=== PATIENT | female | born 1955 | race Caucasian/White ===

== ENCOUNTER 2024-12-21 18:24 | Inpatient (IN) ==
--- NOTE | 2024-12-21 18:49 | Emergency Department Note ---
Impression & Plan Fall from standing, Acute pain of left hip, Closed left hip fracture ED Provider Note HISTORY OF PRESENT ILLNESS: Patient is a 69-year-old female presenting with left hip pain after a fall. Patient reports that she tripped over a cord on her computer and fell to the ground, landing on her left hip. Immediate pain and deformity to the hip. She was unable to get up off the ground by herself and called 911. She denies striking her head or loss of consciousness. She is not on any anticoagulation or antiplatelet therapies. EMS placed a pelvic binder prehospital. On arrival to the emergency department, the patient is complaining of 10 out of 10 pain in her left hip. She is given 100 mcg of IV fentanyl prehospital with EMS. Patient does report she just tripped and fell, she denies any chest pain, shortness of breath or lightheadedness prior to her fall. ROS: as above PHYSICAL EXAM: Constitutional: Patient appears in no acute distress. HENT: Head: Normocephalic and atraumatic. Eyes: EOMI, PERRL Mouth/Throat: Mucous membranes moist. Neck: Trachea midline. Neck supple. No midline cervical spine tenderness to palpation. Cardiovascular: RRR, No murmurs, rubs or gallops. Intact distal pulses. Pulmonary/Chest: No respiratory distress. Breath sounds clear and equal bilaterally. No wheezes or rales. Abdominal: Abdomen soft, no tenderness, rebound or guarding. Musculoskeletal: - LLE: Left leg is shortened and externally rotated. Obvious deformity at the left proximal femur. No open wounds. Intact DP and PT pulses. Patient is able to wiggle toes. Able to dorsiflex and plantarflex the ankle. Sensation intact to light touch throughout the nerve distributions of the leg. Pain with internal and external rotation of the femur at the hip. Skin: Warm and dry. No rash, erythema, pallor or cyanosis Psychiatric: Appropriate mood and affect for situation. Neurological: Alert and keenly responsive. CN II-XII grossly intact, moving all extremities equally and fully. MDM: - Vitals signs showed tachycardia - History obtained via patient. History as above. - Chronic conditions affecting care: HTN; HLD - Differential diagnoses include, but are not limited to: Pelvic fracture; femur fracture; femur dislocation; ACS - Order placed for continuous cardiac monitoring. At this time, monitor showed rate of 96 bpm with normal sinus rhythm, per my interpretation. - External medical records reviewed. - EKG image interpreted by myself showed normal sinus rhythm. Rate 99 bpm. QT 354. No acute ischemic changes. - Laboratory workup interpreted by myself showed normal WBC; stable electrolytes; hyperglycemia (glucose 282) with elevated anion gap (16); elevated AST (65) with normal ALT and normal total bilirubin; normal troponin - Patient given 0.25 mg IV dilaudid in ER. Shortly after opioid dosing, the patient became hypoxic and was started on 2 L nasal cannula. - Pre operative EKG and CXR ordered - CXR image reviewed by myself is negative for pneumonia, per my interpretation. - Xray pelvis with left hip showed left femur fracture. It looks as though it is an intertrochanteric fracture. - Berry catheter inserted - Patient given 1g IV tylenol in ER. - Discussed case with orthopedic surgeon on-call, Dr. King, at 19:39. He agrees with n.p.o. at midnight and admission to hospitalist service. Will plan for OR tomorrow. - Discussion was had with manager rn case about patient's case and need for admission - Hospitalist, Dr. Samaniego, consulted for admission - Patient admitted to [facility] hospitalist service for further evaluation and management. ASSESSMENT AND PLAN: Diagnosis: fall from standing; acute left hip pain; closed left femur fracture Plan: admit Past Med/Surg History Problem List (Updated 12/21/24 @ 21:09 by Susanne Mckeon MD) Closed left hip fracture (Acute) Acute pain of left hip (Acute) Fall from standing (Acute) Social History Smoking Status: Unknown if ever smoked Preferred Language: Hong Konger Feels Safe at Home: Yes Allergies Allergies Allergy/AdvReac Type Severity Reaction Status Date / Time Sulfa (Sulfonamide Allergy Severe Hives Unverified 12/21/24 20:14 Antibiotics) Home Meds Home Medications Medication Instructions Recorded Confirmed atorvastatin 10 mg tablet 10 mg PO HS 12/21/24 12/21/24 cholecalciferol (vitamin D3) 25 25 mcg PO Q48H 12/21/24 12/21/24 mcg (1,000 unit) capsule (Vitamin D3) lisinopril 20 mg tablet 20 mg PO QPM 12/21/24 12/21/24 metformin 500 mg tablet,extended 500 mg PO BIDWMEAL 12/21/24 12/21/24 release 24 hr omeprazole 20 mg capsule,delayed 20 mg PO QAM 12/21/24 12/21/24 release raloxifene 60 mg tablet 60 mg PO QAM 12/21/24 12/21/24 Results & Data (ED) Vital Signs Vital Signs - 24 hr 12/21/24 18:34 12/21/24 18:36 12/21/24 18:55 Pulse Rate 100 H 95 H Pulse Rate [Apical] Respiratory Rate 20 Blood Pressure 134/90 Blood Pressure [Left Arm] Blood Pressure Mean 104 Blood Pressure Mean [Left Arm] Blood Pressure Position Sitting Pulse Oximetry 92 86 L Oxygen Delivery Method Room Air Room Air Oxygen Flow Rate Sepsis Recent Fever Within 48 Hours No Sepsis New/Unexplained Change in Mental Status No Sepsis Action Taken by Nursing No Action Required Oxygen Flow Rate - Titration 3 Pulse Oximetry Post Tiitration 95 12/21/24 21:07 Pulse Rate Pulse Rate [Apical] 115 H Respiratory Rate 20 Blood Pressure Blood Pressure [Left Arm] 158/89 H Blood Pressure Mean Blood Pressure Mean [Left Arm] 112 Blood Pressure Position Pulse Oximetry 97 Oxygen Delivery Method Nasal Cannula Oxygen Flow Rate 2 Sepsis Recent Fever Within 48 Hours Sepsis New/Unexplained Change in Mental Status Sepsis Action Taken by Nursing Oxygen Flow Rate - Titration Pulse Oximetry Post Tiitration Laboratory Data 12/21/24 18:30 12/21/24 18:30 Lab Results 12/21/24 Range/Units 18:30 WBC 9.91 (4.8-10.8) K/ul RBC 3.73 L (4.20-5.40) M/uL Hgb 12.6 (12.0-16.0) g/dl Hct 35.8 L (37.0-47.0) % MCV 96.0 (80.0-100.0) fL MCH 33.8 (25.0-34.0) pg MCHC 35.2 (32.0-36.0) g/dL RDW Std Deviation 53.1 H (36.4-46.3) fL RDW Coeff of Leatha 15.0 H (11.5-14.5) % Plt Count 232 (130-400) K/uL MPV 11.6 (9.4-12.4) fL Immature Gran % (Auto) 0.5 % Neut % (Auto) 71.4 % Lymph % (Auto) 21.0 % [place] % (Auto) 5.8 % Eos % (Auto) 0.8 % Baso % (Auto) 0.5 % Neut # (Auto) 7.08 H (1.40-6.50) K/uL Lymph # (Auto) 2.08 (1.20-3.40) K/uL [place] # (Auto) 0.57 (0.11-0.59) K/uL Eos # (Auto) 0.08 (0.00-0.50) K/uL Baso # (Auto) 0.05 (0.00-0.20) K/uL Immature Gran # (Auto) 0.05 (0.01-0.20) K/uL PT 11.9 (9.0-12.0) Seconds INR 1.1 (0.9-1.1) APTT 23 (21-31) Seconds PTT Ratio 0.9 Sodium 136 (136-145) mmol/L Potassium 3.9 (3.5-5.1) mmol/L Chloride 104 (98-107) mmol/L Carbon Dioxide 16 L (21-32) mmol/L Anion Gap 16 H (3-11) BUN 8 (6-23) mg/dl Creatinine 0.76 (0.6-1.2) mg/dl Est Cr Clr Drug Dosing 92.1 ml/min eGFR 84.24 BUN/Creatinine Ratio 10.5 (10-20) Glucose 282 H (70-99(Fasting)) mg/dl Calcium 8.9 (8.6-10.3) mg/dl Total Bilirubin 0.4 (0.2-1.0) mg/dl AST 65 H (13-39) U/L ALT 48 (7-52) U/L Alkaline Phosphatase 60 (34-104) U/L Troponin I High Sens 2.9 (0-14) pg/ml Total Protein 6.8 (6.0-8.3) gm/dl Albumin 4.1 (3.4-5.0) gm/dl Globulin 2.7 (2.5-4.0) gm/dl Albumin/Globulin Ratio 1.5 (0.9-2) Administered Medications Discontinued Medications Hydromorphone HCl (Hydromorphone Inj 0.5 Mg/0.5 Ml Syr) 0.25 mg IV NOW STA Stop: 12/21/24 18:34 Last Admin: 12/21/24 19:00 Dose: 0.25 mg Documented By: BRANDON Hydromorphone HCl (Hydromorphone Inj 0.5 Mg/0.5 Ml Syr) 0.25 mg IV NOW STA Stop: 12/21/24 20:28 Last Admin: 12/21/24 20:45 Dose: 0.25 mg Documented By: BRANDON Acetaminophen (Ofirmev) 1,000 mg in 100 mls @ 400 mls/hr IV NOW STA Stop: 12/21/24 19:48 Last Infusion: 12/21/24 20:44 Dose: Infused Documented By: Admin: 12/21/24 20:08 Dose: 400 mls/hr Documented By: BRANDON Discharge Plan Visit Data Chief Complaint: Fall ED Provider: Susanne Mckeon Discharge Problem: Fall from standing, Acute pain of left hip, Closed left hip fracture Condition: Fair Forms Stand Alone Forms: My [facility] Prescriptions Prescriptions: No Action atorvastatin 10 mg tablet 10 mg PO HS lisinopril 20 mg tablet 20 mg PO QPM omeprazole 20 mg Capsule,Delayed Release(Dr/Ec) 20 mg PO QAM raloxifene 60 mg tablet 60 mg PO QAM metformin 500 mg tablet extended release 24 hr 500 mg PO BIDWMEAL cholecalciferol (vitamin D3) [Vitamin D3] 25 mcg (1,000 unit) Capsule 25 mcg PO Q48H Referrals Referrals: PCP,NO [Physician] -
[2024-12-21 18:59] LABS: Hematocrit (blood only) 35.8 % (37.0-47.0); Hemoglobin 12.6 g/dl (12.0-16.0); Immature Granulocytes # (auto) 0.05 K/uL (0.01-0.20); Immature Granulocytes % (auto) 0.5 %; Mean Corpuscular Hemoglobin 33.8 pg (25.0-34.0); Mean Corpuscular Volume 96.0 fL (80.0-100.0); Platelet Count 232 K/uL (130-400); RDW Standard Deviation 53.1 fL (36.4-46.3); Red Blood Count 3.73 M/uL (4.20-5.40); White Blood Count 9.91 K/ul (4.8-10.8)
[2024-12-21] MEDS: HYDROmorphone INJ 0.5 MG/0.5 ML SYR IV STA ×3 (19:00→22:05)
[2024-12-21 19:17] LABS: Alanine Aminotransferase 48.0 U/L (7-52); Albumin Globulin Ratio 1.5 (0.9-2); Alkaline Phosphatase 60.0 U/L (34-104); Anion Gap 16.0 (3-11); Bilirubin,Total 0.4 mg/dl (0.2-1.0); Blood Urea Nitrogen 8.0 mg/dl (6-23); Calcium 8.9 mg/dl (8.6-10.3); Carbon Dioxide 16.0 mmol/L (21-32); Chloride 104.0 mmol/L (98-107); Creatinine Clr Calc Pharmacy 92.1 ml/min; Globulin 2.7 gm/dl (2.5-4.0); Glucose 282.0 mg/dl (70-99(Fasting)); Potassium 3.9 mmol/L (3.5-5.1); Sodium 136.0 mmol/L (136-145); Total Protein 6.8 gm/dl (6.0-8.3)
[2024-12-21 19:45] LABS: INR 1.1 (0.9-1.1); Partial Thromboplastin Time 23 Seconds (21-31); Prothrombin Time 11.9 Seconds (9.0-12.0)
[2024-12-21] MEDS: ACETAMINOPHEN 1,000 MG/100 ML VIAL IV STA (20:08)
--- NOTE | 2024-12-21 20:39 | History & Physical Report ---
Date of Service December 21, 2024 Assessment & Plan (1) Closed left hip fracture: Plan: 69-year-old female with past medical history significant for hypertension, diabetes, GERD, hyperlipidemia comes because of fall and found to have left hip fracture. Patient states she tripped over a computer cord and fell on the left side. Did not hit her head. No loss of consciousness. Denies any chest pain. No dizziness. No shortness of breath. Having a lot of pain in the left hip region. Having lot of spasms. Denies any fevers. No headache. No runny nose or sore throat. No cough. Eating and drinking okay. No nausea. No abdominal pain. Normal bowel and bladder movements. Prior to falling she was ambulating fine without any support. Closed left hip fracture Status post mechanical fall Labs are okay. EKG okay. Chest x-ray okay. Patient should be at acceptable risk to proceed with surgery N.p.o., IV fluids, IV pain meds as needed Ortho consult Hypertension On lisinopril Will monitor Diabetes Hold metformin Will follow HbA1c levels Sliding scale We will monitor Hyperlipidemia On statin GERD On omeprazole Osteoporosis On raloxifene DVT prophylaxis SCDs on right leg Further anticoagulation as per orthopedics Disposition Medical floor Full code. History of Present Illness Chief Complaint: Status post fall and left hip fracture Primary Care Provider: Giuliana Tan MD 69-year-old female with past medical history significant for hypertension, diabetes, GERD, hyperlipidemia comes because of fall and found to have left hip fracture. Patient states she tripped over a computer cord and fell on the left side. Did not hit her head. No loss of consciousness. Denies any chest pain. No dizziness. No shortness of breath. Having a lot of pain in the left hip region. Having lot of spasms. Denies any fevers. No headache. No runny nose or sore throat. No cough. Eating and drinking okay. No nausea. No abdominal pain. Normal bowel and bladder movements. Prior to falling she was ambulating fine without any support. Past medical history. As mentioned above Past surgical history. Right hip surgery. Left ankle surgery. Social history. Quit smoking 20 years ago. Prior to that smoked for 20 years. Alcohol drinks 1 to 2 glass of wine daily. Family history. Father had heart disease. Mother had stroke. Sister had breast cancer. Allergies Allergy/AdvReac Type Severity Reaction Status Date / Time Sulfa (Sulfonamide Allergy Severe Hives Unverified 12/21/24 20:14 Antibiotics) Home Medications Medication Instructions Recorded Confirmed Type atorvastatin 10 mg tablet 10 mg PO HS 12/21/24 12/21/24 History cholecalciferol (vitamin D3) 25 25 mcg PO Q48H 12/21/24 12/21/24 History mcg (1,000 unit) capsule (Vitamin D3) lisinopril 20 mg tablet 20 mg PO QPM 12/21/24 12/21/24 History metformin 500 mg tablet,extended 500 mg PO BIDWMEAL 12/21/24 12/21/24 History release 24 hr omeprazole 20 mg capsule,delayed 20 mg PO QAM 12/21/24 12/21/24 History release raloxifene 60 mg tablet 60 mg PO QAM 12/21/24 12/21/24 History Past Med/Surg History Problem List Closed left hip fracture (Acute) Acute pain of left hip (Acute) Fall from standing (Acute) Social History Smoking Status: Former smoker Smoking End Date: 1999; Hx Alcohol Use: Yes Alcohol type: wine Hx Substance Use: No Preferred Language: Uzbek Communication Ability: Effective Film Sorter Required: No Beliefs That Will Affect Care: None Current Living Situation: Alone Other Information That Helps Us Care for You: No Feels Safe at Home: Yes Safety Concerns: Feels Safe At This Time Assistive Devices: Glasses Review of Systems Review of Systems: All systems reviewed & are unremarkable except as noted in HPI & below Physical Exam Physical Exam: General- Not in distress Head- atraumatic Eyes- PERRL. ENT- oropharynx clear Neck- supple, no JVD. Lungs- clear to auscultation no wheezing or crackles Heart- regular rate and rhythm; no murmur, no gallop. Abdomen- normal bowel sounds, soft, nontender, no distension Extremities- Left lower extremity shortened and externally rotates. sensations intact Neuro- alert, oriented PERRL, no facial palsy; no dysarthria; Results & Data Results & Data Vital Signs (Past 12 Hours) Vital Signs Pulse Resp BP Pulse Ox O2 Del Method 12/21/24 18:55 86 L Room Air 12/21/24 18:36 95 H 12/21/24 18:34 100 H 20 134/90 92 Room Air Diagnostic Findings Laboratory Results WBC 9.91 K/ul (4.8-10.8) 12/21/24 18:30 RBC 3.73 M/uL (4.20-5.40) L 12/21/24 18:30 Hgb 12.6 g/dl (12.0-16.0) 12/21/24 18:30 Hct 35.8 % (37.0-47.0) L 12/21/24 18:30 MCV 96.0 fL (80.0-100.0) 12/21/24 18: MCH 33.8 pg (25.0-34.0) 12/21/24 18: MCHC 35.2 g/dL (32.0-36.0) 12/21/24 18: RDW Std Deviation 53.1 fL (36.4-46.3) H 12/21/24 18:30 RDW Coeff of Leatha 15.0 % (11.5-14.5) H 12/21/24 18: Plt Count 232 K/uL (130-400) 12/21/24 18: MPV 11.6 fL (9.4-12.4) 12/21/24 18:30 Immature Gran % (Auto) 0.5 % 12/21/24 18:30 Neut % (Auto) 71.4 % 12/21/24 18:30 Lymph % (Auto) 21.0 % 12/21/24 18:30 [place] % (Auto) 5.8 % 12/21/24 18:30 Eos % (Auto) 0.8 % 12/21/24 18:30 Baso % (Auto) 0.5 % 12/21/24 18:30 Neut # (Auto) 7.08 K/uL (1.40-6.50) H 12/21/24 18:30 Lymph # (Auto) 2.08 K/uL (1.20-3.40) 12/21/24 18:30 [place] # (Auto) 0.57 K/uL (0.11-0.59) 12/21/24 18:30 Eos # (Auto) 0.08 K/uL (0.00-0.50) 12/21/24 18: Baso # (Auto) 0.05 K/uL (0.00-0.20) 12/21/24 18:30 Immature Gran # (Auto) 0.05 K/uL (0.01-0.20) 12/21/24 18:30 PT 11.9 Seconds (9.0-12.0) 12/21/24 18:30 INR 1.1 (0.9-1.1) 12/21/24 18:30 APTT 23 Seconds (21-31) 12/21/24 18:30 PTT Ratio 0.9 12/21/24 18:30 Sodium 136 mmol/L (136-145) 12/21/24 18:30 Potassium 3.9 mmol/L (3.5-5.1) 12/21/24 18: Chloride 104 mmol/L (98-107) 12/21/24 18: Carbon Dioxide 16 mmol/L (21-32) L 12/21/24 18:30 Anion Gap 16 (3-11) H 12/21/24 18:30 BUN 8 mg/dl (6-23) 12/21/24 18: Creatinine 0.76 mg/dl (0.6-1.2) 12/21/24 18:30 Est Cr Clr Drug Dosing 92.1 ml/min 12/21/24 18:30 eGFR 84.24 12/21/24 18: BUN/Creatinine Ratio 10.5 (10-20) 12/21/24 18:30 Glucose 282 mg/dl (70-99(Fasting)) H 12/21/24 18: Calcium 8.9 mg/dl (8.6-10.3) 12/21/24 18:30 Total Bilirubin 0.4 mg/dl (0.2-1.0) 12/21/24 18:30 AST 65 U/L (13-39) H 12/21/24 18:30 ALT 48 U/L (7-52) 12/21/24 18:30 Alkaline Phosphatase 60 U/L (34-104) 12/21/24 18:30 Troponin I High Sens 2.9 pg/ml (0-14) 12/21/24 18:30 Total Protein 6.8 gm/dl (6.0-8.3) 12/21/24 18:30 Albumin 4.1 gm/dl (3.4-5.0) 12/21/24 18:30 Globulin 2.7 gm/dl (2.5-4.0) 12/21/24 18:30 Albumin/Globulin Ratio 1.5 (0.9-2) 12/21/24 18:30 ECG Additional Comments: ECG. Normal sinus rhythm rate of 99. No acute ST changes seen. QTc 454. Code Status & VTE Plan VTE Prophylaxis Plan VTE Prophylaxis will be ordered: Yes
--- NOTE | 2024-12-21 21:57 | XRay Report ---
EXAM: XR chest 1V portable CLINICAL HISTORY: Pre op. TECHNIQUE: An X-ray image of the chest is obtained in AP projection. COMPARISON: No prior studies are available for comparison. FINDINGS: Pulmonary Parenchyma: Lungs are clear bilaterally. No evidence of consolidation, collapse, or focal opacities. No pulmonary nodules are identified. No evidence of pleural effusion or pleural thickening. Heart and Mediastinum: Heart size and shape are normal. No mediastinal widening or masses. No hilar or mediastinal lymphadenopathy. Bony Thorax: Bony thorax appears intact without fractures or deformities. Soft Tissues: Soft tissues overlying the chest wall are unremarkable. IMPRESSION: 1. No acute cardiopulmonary abnormalities are identified. Electronically signed by Jacobo Rich 12-21-2024 9:56 PM
[2024-12-21] MEDS: CYCLOBENZAPRINE HCL 10 MG TAB PO STA (22:05)
--- NOTE | 2024-12-21 22:11 | XRay Report ---
EXAM: XR hip LT 2V w pelvis CLINICAL HISTORY: L hip pain s/p fall. TECHNIQUE: X-ray images of the left hip joints and pelvis in AP and and hip lateral projection. COMPARISON: No prior studies available for comparison. FINDINGS: Bones: A comminuted fracture is seen involving the left femoral intertrochanteric and subtrochanteric regions with mild angulation. Osteopenic texture of examined bones. Joints: Osteoarthritic changes of the hip joint with narrowed joint space. no femoral head fracture or subluxation. Sacroiliac joints appear normal and unremarkable. No evidence of sacroiliitis or significant degenerative changes. Symphysis pubis is normal and intact. No evidence of separation or widening. Soft tissue: Mild soft tissue swelling. IMPRESSION: 1. Comminuted fracture involving the left femoral intertrochanteric and subtrochanteric regions with mild angulation. 2. Osteoarthritic changes of the hip joint with narrowed joint space. 3. No femoral head fracture or subluxation. Disclaimer: A subtle bone abnormality or fracture may not be readily apparent on X-rays, thus clinical correlation and further imaging including follow-up CT, MRI, or follow-up X-rays are advised as needed. Electronically signed by Jacobo Rich 12-21-2024 10:10 PM
[2024-12-21] MEDS ORDERED: GLUCOSE 40% GEL 15 GM TUBE PO PRN (22:53)
[2024-12-21] MEDS ORDERED: CARBOHYDRATES FOR HYPOGLYCEMIA PO PRN (22:53)
[2024-12-21] MEDS ORDERED: POLYETHYLENE (MIRALAX) 17 GM PACK PO PRN (22:53)
[2024-12-21] MEDS ORDERED: GLUCAGON FOR INJ 1 MG VIAL SQ PRN (22:53)
[2024-12-21] MEDS ORDERED: DEXTROSE 50% 50 ML SYRINGE IV PRN (22:53)
[2024-12-21] MEDS ORDERED: GLUCOSE 10 TAB/TUBE PO PRN (22:53)
[2024-12-21] MEDS: ONDANSETRON INJ 2 MG/ML 2 ML VIAL IV PRN (23:38)
[2024-12-21] MEDS: HYDROmorphone INJ 0.5 MG/0.5 ML SYR IV PRN (23:38)
[2024-12-22] MEDS: INSULIN ASPART PER UNIT CHARGE SC SCH ×2 (00:06→20:45)
[2024-12-22] MEDS: LACTATED RINGER'S 1,000 ML IV SCH (00:06)
[2024-12-22] MEDS: ATORVASTATIN 10 MG TAB PO SCH (00:12)
[2024-12-22] MEDS: KETOROLAC TROMETHAMINE 15 MG/ML VIAL IV ONE (03:18)
[2024-12-22] MEDS: HYDROmorphone INJ 0.5 MG/0.5 ML SYR IV PRN (03:44)
[2024-12-22] MEDS ORDERED: KETOROLAC TROMETHAMINE 15 MG/ML VIAL IV ONE (05:07)
[2024-12-22] MEDS: CYCLOBENZAPRINE HCL 10 MG TAB PO STA (05:12)
[2024-12-22] MEDS: ACETAMINOPHEN 1,000 MG/100 ML VIAL IV PRN (05:16)
--- NOTE | 2024-12-22 07:03 | Anesthesiology Consultation ---
Date of Service December 22, 2024 Assessment & Plan Chart Review Chart Review: Acceptable Risk for Surgery and Patient NOT seen in Pre Admission Testing History Surgery Operation Date: 12/22/24 07:00 Proposed Procedures p Left Long Troch Nail - He Montiel MD Height/Weight Height: 5 ft 1 in Weight: 63.6 kg Allergies Allergy/AdvReac Type Severity Reaction Status Date / Time Sulfa (Sulfonamide Allergy Severe Hives Unverified 12/21/24 20:14 Antibiotics) Medications Home Medications Medication Instructions Recorded Confirmed Last Taken atorvastatin 10 mg tablet 10 mg PO HS 12/21/24 12/21/24 12/20/24 cholecalciferol (vitamin D3) 25 25 mcg PO Q48H 12/21/24 12/21/24 12/21/24 mcg (1,000 unit) capsule (Vitamin D3) lisinopril 20 mg tablet 20 mg PO QPM 12/21/24 12/21/24 12/20/24 metformin 500 mg tablet,extended 500 mg PO BIDWMEAL 12/21/24 12/21/24 12/21/24 08:00 release 24 hr omeprazole 20 mg capsule,delayed 20 mg PO QAM 12/21/24 12/21/24 12/21/24 release raloxifene 60 mg tablet 60 mg PO QAM 12/21/24 12/21/24 12/21/24 Active Medications Generic Name Dose Route Start Last Admin Trade Name Freq PRN Reason Stop Dose Admin Atorvastatin Calcium 10 mg 12/21/24 22:53 12/22/24 00:12 Atorvastatin 10 Mg Tab PO 01/20/25 22:52 10 mg HS JAVIER Administration Hydromorphone HCl 0.25 mg 12/21/24 22:53 12/21/24 23:38 Hydromorphone Inj 0.5 Mg/0.5 Ml Syr IV 01/04/25 22:52 0.25 mg Q4H PRN Administration Moderate Pain (Scale 4, 5, 6) Hydromorphone HCl 0.5 mg 12/21/24 22:53 12/22/24 03:44 Hydromorphone Inj 0.5 Mg/0.5 Ml Syr IV 01/04/25 22:52 0.5 mg Q4H PRN Administration Severe Pain (Scale 7, 8, 9,10) Lactated Ringer's 1,000 mls @ 125 mls/hr 12/21/24 22:53 12/22/24 00:06 Lr IV 12/24/24 22:52 125 mls/hr .Q8H JAVIER Administration Acetaminophen 1,000 mg in 100 mls @ 400 mls/hr 12/21/24 22:53 12/22/24 05:31 Ofirmev IV 12/24/24 22:52 Infused Q8H PRN Infusion Pain or Fever Insulin Aspart 0 units 12/21/24 23:45 12/22/24 05:25 Insulin Aspart Per Unit Charge SC 01/20/25 23:44 2 units Q6 JAVIER Administration Lisinopril 20 mg 12/21/24 22:53 12/22/24 00:13 Lisinopril 20 Mg Tab PO 01/20/25 22:52 20 mg QPM JAVIER Administration Ondansetron HCl 4 mg 12/21/24 23:09 12/21/24 23:38 Ondansetron Inj 2 Mg/Ml 2 Ml Vial IV 01/20/25 23:08 4 mg Q6H PRN Administration Nausea And Vomiting Social History Smoking Status: Former smoker Smoking End Date: 1999 Hx Alcohol Use: Yes Alcohol type: wine alcohol intake frequency: 0-2 drinks per day Hx Substance Use: No Physical Exam Vital Signs Last Vital Signs Temp 36.7 C 12/21/24 23:00 Pulse 89 12/22/24 00:12 Resp 18 12/21/24 23:00 BP 143/79 H 12/22/24 00:12 Pulse Ox 95 12/21/24 23:00 O2 Del Method Nasal Cannula 12/21/24 23:00 O2 Flow Rate 3 12/21/24 23:00 Testing Laboratory Results 12/21/24 18:30 12/21/24 18:30 PT 11.9 Seconds (9.0-12.0) 12/21/24 18:30 INR 1.1 (0.9-1.1) 12/21/24 18:30 APTT 23 Seconds (21-31) 12/21/24 18:30 12/22/24 12/21/24 05:20 23:01 POC Glucose 199 H 271 H
--- NOTE | 2024-12-22 07:16 | History & Physical Bridge Note ---
Date of Service December 22, 2024 History & Physical Bridge Note I have examined the patient, reviewed the History & Physical and in the interval since the performance of the History & Physical I have noted the following changes of clinical significance: no changes noted
[2024-12-22 07:21] LABS: Hematocrit (blood only) 33.3 % (37.0-47.0); Hemoglobin 11.6 g/dl (12.0-16.0); Immature Granulocytes # (auto) 0.04 K/uL (0.01-0.20); Immature Granulocytes % (auto) 0.4 %; Mean Corpuscular Hemoglobin 33.5 pg (25.0-34.0); Mean Corpuscular Volume 96.2 fL (80.0-100.0); Platelet Count 210 K/uL (130-400); RDW Standard Deviation 53.9 fL (36.4-46.3); Red Blood Count 3.46 M/uL (4.20-5.40); White Blood Count 9.71 K/ul (4.8-10.8)
[2024-12-22] MEDS: CHOLECALCIFEROL 25 MCG (1000 UNITS) TAB PO SCH (07:25)
[2024-12-22] MEDS: RALOXIFENE HCL 60 MG TAB PO SCH (07:25)
[2024-12-22 07:41] LABS: Anion Gap 8.0 (3-11); Blood Urea Nitrogen 10.0 mg/dl (6-23); Calcium 8.7 mg/dl (8.6-10.3); Carbon Dioxide 25.0 mmol/L (21-32); Chloride 104.0 mmol/L (98-107); Creatinine Clr Calc Pharmacy 62.1 ml/min; Glucose 179.0 mg/dl (70-99(Fasting)); Magnesium 1.4 mg/dl (1.7-2.4); Potassium 4.6 mmol/L (3.5-5.1); Sodium 137.0 mmol/L (136-145)
[2024-12-22] MEDS ORDERED: MAGNESIUM SULFATE / D5W 1 GM/100 ML BAG IV SCH (08:30)
--- NOTE | 2024-12-22 08:39 | Orthopedic Consultation ---
Date of Service December 22, 2024 Assessment & Plan (1) Closed intertrochanteric fracture of left femur: * Case/imaging reviewed and discussed with Dr Montiel * Recommend OR fixation of left femur fracture * Plan for OR today * Bedrest/nonweightbearing preop * Maintain NPO * Disposition: TBD * Daily treatment: Physical Therapy/ Occupational Therapy per protocol * Pain control * Remainder care per primary team History of Present Illness Reason for Consultation: .Patient is a 69y/o female with left hip pain. No significant PMH on file. Presents to hospital with left hip pain after a fall at home. Per patient she had just plug in her computer earlier and was turning to sit down when she got tangled in the cord, tripped, fell and landed on the left hip. Immediate pain of her left hip region and unable to ambulate. Current workup including x-ray left hip demonstrating intertrochanteric femur fracture. Admitted to hospital medicine team. Orthopedics consulted for management recommendations. At time of exam patient lying comfortably in bed, no acute distress. Endorses moderate pain in the left hip that increases with any attempted movement of the left leg. Significant muscle spasm. Denies tingling or numbness of the left lower e xtremity. No assistive devices at baseline. Requesting Physician: . Attending Physician: Lex Arcos MD . Allergies Allergy/AdvReac Type Severity Reaction Status Date / Time Sulfa (Sulfonamide Allergy Severe Hives Unverified 12/21/24 20:14 Antibiotics) Home Medications Medication Instructions Recorded Confirmed Type atorvastatin 10 mg tablet 10 mg PO HS 12/21/24 12/21/24 History cholecalciferol (vitamin D3) 25 25 mcg PO Q48H 12/21/24 12/21/24 History mcg (1,000 unit) capsule (Vitamin D3) lisinopril 20 mg tablet 20 mg PO QPM 12/21/24 12/21/24 History metformin 500 mg tablet,extended 500 mg PO BIDWMEAL 12/21/24 12/21/24 History release 24 hr omeprazole 20 mg capsule,delayed 20 mg PO QAM 12/21/24 12/21/24 History release raloxifene 60 mg tablet 60 mg PO QAM 12/21/24 12/21/24 History Past Med/Surg History Problem List (Updated 12/22/24 @ 08:39 by He Vides PA-C) Closed intertrochanteric fracture of left femur Closed left hip fracture (Acute) Acute pain of left hip (Acute) Fall from standing (Acute) Social History Smoking Status: Former smoker Smoking End Date: 1999; Hx Alcohol Use: Yes Alcohol type: wine Hx Substance Use: No Preferred Language: Sudanese Communication Ability: Effective Assembler Motor Vehicle Required: No Beliefs That Will Affect Care: None Current Living Situation: Alone Other Information That Helps Us Care for You: No Feels Safe at Home: Yes Safety Concerns: Feels Safe At This Time Assistive Devices: Glasses Review of Systems All systems reviewed & are unremarkable except as noted in HPI & below. Physical Exam . * General: Alert and oriented, no acute distress * Constitutional: well-developed, well-nourished. * Respiratory: Normal respiratory effort, no distress * Gastrointestinal: No tenderness to palpation, no rigidity or guarding. * Skin: No rash or lesion. * Neurologic: Grossly normal * Musculoskeletal: Left lower extremity shortened and externally rotated. Otherwise no obvious deformity or overlying skin changes to the left leg. TTP proximal thigh, anterior hip region. Otherwise no specific tenderness of the distal thigh, knee, lower leg. Pain with logroll, otherwise ROM hip not assessed. AROM foot/ankle intact. Sensation intact plantar/dorsal foot. Brisk capillary refill. Results & Data Results & Data Laboratory Results . Diagnostic Findings . Chest X-Ray 12/21/24 18:34 EXAM: XR chest 1V portable CLINICAL HISTORY: Pre op. TECHNIQUE: An X-ray image of the chest is obtained in AP projection. COMPARISON: No prior studies are available for comparison. FINDINGS: Pulmonary Parenchyma: Lungs are clear bilaterally. No evidence of consolidation, collapse, or focal opacities. No pulmonary nodules are identified. No evidence of pleural effusion or pleural thickening. Heart and Mediastinum: Heart size and shape are normal. No mediastinal widening or masses. No hilar or mediastinal lymphadenopathy. Bony Thorax: Bony thorax appears intact without fractures or deformities. Soft Tissues: Soft tissues overlying the chest wall are unremarkable. IMPRESSION: 1. No acute cardiopulmonary abnormalities are identified. Electronically signed by Jacobo Rich 12-21-2024 9:56 PM Hip/Pelvis X-Ray 12/21/24 18:34 EXAM: XR hip LT 2V w pelvis CLINICAL HISTORY: L hip pain s/p fall. TECHNIQUE: X-ray images of the left hip joints and pelvis in AP and and hip lateral projection. COMPARISON: No prior studies available for comparison. FINDINGS: Bones: A comminuted fracture is seen involving the left femoral intertrochanteric and subtrochanteric regions with mild angulation. Osteopenic texture of examined bones. Joints: Osteoarthritic changes of the hip joint with narrowed joint space. no femoral head fracture or subluxation. Sacroiliac joints appear normal and unremarkable. No evidence of sacroiliitis or significant degenerative changes. Symphysis pubis is normal and intact. No evidence of separation or widening. Soft tissue: Mild soft tissue swelling. IMPRESSION: 1. Comminuted fracture involving the left femoral intertrochanteric and subtrochanteric regions with mild angulation. 2. Osteoarthritic changes of the hip joint with narrowed joint space. 3. No femoral head fracture or subluxation. Disclaimer: A subtle bone abnormality or fracture may not be readily apparent on X-rays, thus clinical correlation and further imaging including follow-up CT, MRI, or follow-up X-rays are advised as needed. Electronically signed by Jacobo Rich 12-21-2024 10:10 PM PG Care Time/CCT Total # of Minutes Spent Total Time Spent with Patient: Total time spent is greater than 50% in coordination of care (as documented) at patient's floor/unit and/or counseling patient: [place] [address] IN/OBS CONSULT LVL 5,80M Patient Type New History Problem Focused Exam Problem Focused Medical Decision Making High Complexity Diagnoses Closed intertrochanteric fracture of left femur S72.142A
[2024-12-22] MEDS ORDERED: Nursing to Pharmacy Communication SCH ×2 (09:15→17:15)
--- NOTE | 2024-12-22 09:23 | XRay Report ---
XR femur LT 2V routine CLINICAL HISTORY: IT fx COMPARISON: 12/21/2024 FINDINGS: Acute mildly displaced intertrochanteric fracture proximal left femur has stable alignment with mild proximal migration of the distal fragment. No other fracture or dislocation seen at the le ft femur. IMPRESSION: Stable alignment at the proximal femur fracture. ACT 112: Negative or not required by law. Electronically signed by: Rubin Horner M.D. 12/22/2024 9:21 AM
[2024-12-22] MEDS ORDERED: MIDAZOLAM HCL 1 MG/ML 2ML VIAL ONE (09:24)
[2024-12-22] MEDS ORDERED: LIDOCAINE 2% 2 ML VIAL/AMP(20MG/ML) INFIL ONE (09:25)
[2024-12-22] MEDS ORDERED: ONDANSETRON INJ 2 MG/ML 2 ML VIAL ONE (09:25)
[2024-12-22] MEDS ORDERED: PROPOFOL IV EMULSION 10 MG/ML 20 ML VIAL IV ONE (09:25)
[2024-12-22] MEDS ORDERED: DEXAMETHASONE SOD INJ 4 MG/ML VIAL ONE (09:25)
[2024-12-22 09:32] LABS: Hemoglobin A1C 8.3 % (4.5-5.6)
[2024-12-22] MEDS ORDERED: ROCURONIUM BROMIDE 10 MG/ML 5 ML VIAL IV ONE (09:34)
--- NOTE | 2024-12-22 09:48 | Anesthesiology Consultation ---
Date of Service December 22, 2024 Assessment & Plan Chart Review Chart Review: Acceptable Risk for Surgery and Patient NOT seen in Pre Admission Testing Consults Requested none low magnesium ASA ASA3 Proposed Anesthesia Anesthesia Type: General Risk / Benefits Reviewed With: PT / POA / Parent / Guardian, Accepts Plan and Informed Consent Obtained History Surgery Operation Date: 12/22/24 07:00 Proposed Procedures p Left Long Troch Nail - He Montiel MD Height/Weight Height: 5 ft 1 in Weight: 63.6 kg Allergies Allergy/AdvReac Type Severity Reaction Status Date / Time Sulfa (Sulfonamide Allergy Severe Hives Unverified 12/21/24 20:14 Antibiotics) Medications Home Medications Medication Instructions Recorded Confirmed Last Taken atorvastatin 10 mg tablet 10 mg PO HS 12/21/24 12/21/24 12/20/24 cholecalciferol (vitamin D3) 25 25 mcg PO Q48H 12/21/24 12/21/24 12/21/24 mcg (1,000 unit) capsule (Vitamin D3) lisinopril 20 mg tablet 20 mg PO QPM 12/21/24 12/21/24 12/20/24 metformin 500 mg tablet,extended 500 mg PO BIDWMEAL 12/21/24 12/21/24 12/21/24 08:00 release 24 hr omeprazole 20 mg capsule,delayed 20 mg PO QAM 12/21/24 12/21/24 12/21/24 release raloxifene 60 mg tablet 60 mg PO QAM 12/21/24 12/21/24 12/21/24 Active Medications Generic Name Dose Route Start Last Admin Trade Name Freq PRN Reason Stop Dose Admin Atorvastatin Calcium 10 mg 12/21/24 22:53 12/22/24 00:12 Atorvastatin 10 Mg Tab PO 01/20/25 22:52 10 mg HS JAVIER Administration Hydromorphone HCl 0.25 mg 12/21/24 22:53 12/21/24 23:38 Hydromorphone Inj 0.5 Mg/0.5 Ml Syr IV 01/04/25 22:52 0.25 mg Q4H PRN Administration Moderate Pain (Scale 4, 5, 6) Hydromorphone HCl 0.5 mg 12/21/24 22:53 12/22/24 07:23 Hydromorphone Inj 0.5 Mg/0.5 Ml Syr IV 01/04/25 22:52 0.5 mg Q4H PRN Administration Severe Pain (Scale 7, 8, 9,10) Lactated Ringer's 1,000 mls @ 125 mls/hr 12/21/24 22:53 12/22/24 07:58 Lr IV 12/24/24 22:52 125 mls/hr .Q8H JAVIER Administration Acetaminophen 1,000 mg in 100 mls @ 400 mls/hr 12/21/24 22:53 12/22/24 05:31 Ofirmev IV 12/24/24 22:52 Infused Q8H PRN Infusion Pain or Fever Insulin Aspart 0 units 12/21/24 23:45 12/22/24 05:25 Insulin Aspart Per Unit Charge SC 01/20/25 23:44 2 units Q6 JAVIER Administration Lisinopril 20 mg 12/21/24 22:53 12/22/24 00:13 Lisinopril 20 Mg Tab PO 01/20/25 22:52 20 mg QPM JAVIER Administration Ondansetron HCl 4 mg 12/21/24 23:09 12/21/24 23:38 Ondansetron Inj 2 Mg/Ml 2 Ml Vial IV 01/20/25 23:08 4 mg Q6H PRN Administration Nausea And Vomiting Pantoprazole Sodium 40 mg 12/22/24 09:00 12/22/24 07:25 Pantoprazole 40 Mg Tab PO 01/21/25 08:59 40 mg QAM JAVIER Administration Raloxifene HCl 60 mg 12/22/24 09:00 12/22/24 07:25 Raloxifene Hcl 60 Mg Tab PO 01/21/25 08:59 60 mg QAM JAVIER Administration Vitamin D 25 mcg 12/22/24 09:00 12/22/24 07:25 Cholecalciferol 25 Mcg (1000 Units) Tab PO 01/21/25 08:59 25 mcg Q48H JAVIER Administration NPO Date Last Intake of Fluids: 12/21/24 Time Last Intake of Fluids: 14:00 Date Last Intake of Solids: 12/21/24 Time Last Intake of Solids: 13:00 Exercise / Class Metabolic Activity II 4-5 Yardwork/Stairs/Walk up hill Past Anesthesia History No Hx of Anesthesia Complications and No Family Hx of Anesthesia Complications History of PONV No Hx of PONV and No Hx of Motion Sickness Social History Smoking Status: Former smoker Smoking End Date: 1999 Hx Alcohol Use: Yes Alcohol type: wine alcohol intake frequency: 0-2 drinks per day Hx Substance Use: No Physical Exam Vital Signs Last Vital Signs Temp 38.0 C H 12/22/24 09:20 Pulse 103 H 12/22/24 09:20 Resp 18 12/22/24 09:20 BP 157/85 H 12/22/24 09:20 Pulse Ox 97 12/22/24 09:20 O2 Del Method Nasal Cannula 12/22/24 09:20 O2 Flow Rate 2 12/22/24 09:20 Constitutional WD/WN, vitals as above Eyes PERRL, conjunctivae normal, anicteric sclerae ENMT external ear and nose normal, oropharynx normal Mouth: no dentition abnormality Thyromental Distance: > or= 3.5 Finger Breadths Mallampati Class: II Neck trachea midline, no thyromegaly Respiratory normal respiratory effort, lungs clear to auscultation normal respiratory effort; no respiratory distress Auscultation: lungs clear to auscultation bilaterally Cardiovascular RRR, no murmur, no edema Rate/Rhythm: regular rate and regular rhythm Musculoskeletal Head/Neck/Chest: normocephalic and head atraumatic Spine: normal cervical ROM and no pain with cervical ROM Extremities: extremities normal to inspection and strength 5/5 throughout; full ROM of extremities Skin no rashes, warm and dry Psychiatric A+Ox3, euthymic affect Orientation: alert and oriented x 3 Testing Laboratory Results 12/22/24 07:05 12/22/24 07:05 PT 11.9 Seconds (9.0-12.0) 12/21/24 18:30 INR 1.1 (0.9-1.1) 12/21/24 18:30 APTT 23 Seconds (21-31) 12/21/24 18:30 Hemoglobin A1c 8.3 % (4.5-5.6) H 12/22/24 07:05 12/22/24 12/22/24 12/21/24 09:20 05:20 23:01 POC Glucose 181 H 199 H 271 H
[2024-12-22] MEDS ORDERED: SCOPOLAMINE 1 MG/72 HR TDSY PATCH TD ONE (09:50)
--- NOTE | 2024-12-22 10:15 | History & Physical Bridge Note ---
Date of Service December 22, 2024 History & Physical Bridge Note I have examined the patient, reviewed the History & Physical and in the interval since the performance of the History & Physical I have noted the following changes of clinical significance: no changes noted Patient was seen and examined in the preoperative holding area. The plan for left hip fracture closed reduction and internal fixation with trochanteric fixation nail was reviewed and confirmed. Informed consent was reviewed and confirmed as originally performed by the physician senior sales assistant.
[2024-12-22] MEDS ORDERED: KETOROLAC 30 MG/ML VIAL ONE (10:50)
[2024-12-22] MEDS: TRANEXAMIC ACID / 0.7% NACL 1,000 MG/100 ML BAG IV ONE (11:00)
[2024-12-22] MEDS ORDERED: SUGAMMADEX SODIUM 200 MG/2 ML VIAL IV ONE (11:18)
[2024-12-22] MEDS: BUPIVACAINE/EPINEPHRINE 0.5% MPF 1:200,000 30 ML VIAL ONE (11:46)
--- NOTE | 2024-12-22 11:51 | Operative Report ---
PG Post Operative Report Pre & Post Diagnosis Operation Date: 12/22/24 07:00 Pre-Op Diagnosis: Left intertrochanteric femur fracture with subtrochanteric tension Post-Op Diagnosis: Left intertrochanteric femur fracture with subtrochanteric extension I identified the patient and participated in the time-out.: Yes Procedure Operation Date: 12/22/24 07:00 Actual Procedures p Left peritrochanteric femur fracture closed reduction and internal fixation with a long cephalomedullary nail. (Left) - He Montiel MD Surgeon He Montiel MD Electrocardiograph Repairer He Vides PA-C Estimated Blood Loss 100 Findings See Below Comminuted subtrochanteric fracture with significant shortening. All [employer] implants: 10 mm/130 degree titanium cannulated trochanteric fixation nail of 360 mm length. 11.0 mm titanium helical blade of 95 mm length. Distal interlock screw measuring 38 mm. Specimens none Anesthesia Type General Complications none Disposition Accompanied Patient To Recovery: No Disposition: Recovery Room Indications 69-year-old female sustained fall onto her hip resulting in an a displaced peritrochanteric fracture. She is admitted for preoperative workup and found h ealthy for surgery expeditiously. I reviewed the diagnosis, prognosis and recommended treatment of internal fixation with her at the bedside in the preoperative area. She had previously been counseled and consented by our physician assistant offset press operator, He Vides. I reviewed and confirmed the consent with the review of risk and benefits. She desired to proceed. Description of Procedure On the day of surgery the patient was greeted in the preoperative holding area and the informed consent was reviewed and confirmed. The surgical site was then identified by the patient and signed by myself. The patient was taken to the operating room and placed by the OR table. Anesthesia was induced. Mallie table boots were applied to both feet. The patient was then positioned on the fracture table. All johnathan prominences were well padded. Mallie table boots were locked into the leg positioners. We then positioned the lower extremities in a scissor fashion with a non-op leg flexed down to allow visualization with fluoroscopy which was confirmed before we prepped and draped. Surgical timeout was called and verified by all present. Antibiotics and TXA were infused, and equipment was available and functional. The procedure was initiated with a closed reduction maneuvers. Gentle in-line traction pulled the fracture out to length. The limb was then internally rotated to reduce the proximal femur. Flexion and adduction were used to adjust the reduction and allow access to the greater trochanter. We had adequate reduction prior to prepping and draping. The leg was then prepped and draped in usual sterile fashion. Surgical timeout was reconfirmed. We initiated the surgical internal fixation portion with finding the start point with the tip of the greater trochanter. Fluoroscopic guidance was used and a small poke hole was established. The start point was confirmed on fluoroscopy in AP and lateral planes and the pin was advanced using a mallet. An incision was made about the pin to allow access for the reamers. The pin was then advanced past the lesser trochanter, and its position was confirmed using AP and lateral fluoroscopy. Using the protective sleeve, the opening reamer was advanced under power with fluoroscopic guidance over the guidepin. It was advanced slowly. The reduction wire was then advanced down the distal femur to the level of the superior pole of the patella. Measurement was taken from the tip of the trochanter down to the end of the guidewire, and the 360 was selected. We then began sequential reaming. We started with 10 and used fluoroscopy to guide our reaming. We advanced the reaming in gradual increments up to a 11.5. An 10 mm nail was loaded onto the jig and advanced manually down the canal, while ensuring maintenance of the reduction on fluoroscopy. We then tapped it down into place until we achieve the good position for our cephalo-medullary screw. The cannula was placed on the jig to allow positioning of the cephalo-medullary screw. The skin incision was made in the appropriate spot. The jig cannulas were then placed against the lateral cortex. The cephalo-medullary screw guidepin was advanced towards the femoral head. The center-center position was confirmed on fluoroscopy in AP and lateral planes. The length of the screw was measured off the guide. The helical blade screw was then opened on the back table and prepared on the screwdriver. The lateral cortical opening drill, followed by the triple drill reamer for the helical blade was advanced under fluoroscopic guidance. The helical blade was advanced over the guidepin to appropriate position. The helical blade was locked in rotation and then the traction was taken off. Fluoroscopy confirmed maintenance of reduction and adequate position of the implant. The compression sleeve was then advanced against the lateral femur to improve the trochanteric-shaft reduction and compress the intertrochanteric region fracture. Attention was then directed distally to perform the interlock screws in using perfect grayling technique. 1 interlock screw was placed with a 5 mm diameter in the middle of the sliding hole. The length was measured using a depth gauge, with fluoroscopic guidance. This completed the fixation. This completed the fixation of the fracture. Fluoroscopy was used in both AP and lateral planes to evaluate the entirety of the fracture and implant. Reduction and implant positions were acceptable. The wounds were then thoroughly irrigated with bulb syringe and normal saline. The deep fascial layer and adipose layer was approximated with 0 Vicryl suture. The dermal layer was approximated using 2-0 Vicryl suture. The final skin closure was completed with jesika. Wounds were dressed with sterile Xeroform, sterile gauze, and Ioban over ABDs. The patient tolerated procedure well, awoke from anesthesia without complication, was extubated in the operating room, and transferred to the PACU in stable condition. Disposition: The patient be weightbearing as tolerated. I recommended routine DVT prophylaxis consisting aspirin. DVT prophylaxis should last 6 weeks. 24 hours of antibiotic prophylaxis should be continued. Physician assistant offset press operator attestation: He Vides PA-C was present and scrubbed for the duration of the case. He was essential to prepping/draping, patient positioning, implantation, instrumentation, and assistance with wound closure. I attest to the content of the Intraoperative Record and any orders documented therein. Any exceptions are noted below.
--- NOTE | 2024-12-22 11:57 | Fluoroscopy Report ---
FL femur LT 2V CLINICAL HISTORY: L TROCH NAIL COMPARISON STUDY: 12/22/2024 FLUOROSCOPY TIME: 120 seconds FLUOROSCOPY IMAGES: 5 EXPOSURE DOSE: 27 mGy FINDINGS: Fluoroscopy was provided for left femoral gamma nail. IMPRESSION: Intraoperative fluoroscopy. ACT 112: Negative or not required by law. Electronically signed by: Rubin Horner M.D. 12/22/2024 11:55 AM
--- NOTE | 2024-12-22 12:25 | XRay Report ---
XR hip LT min 2V CLINICAL HISTORY: Post-Operative implant position COMPARISON: 12/22/2024 FINDINGS: Interval left femoral gamma nail shows no hardware complication. There is improved alignme nt at the proximal femur fracture. There is expected soft tissue gas. Skin jesika are present. IMPRESSION: Improved alignment. ACT 112: Negative or not required by law. Electronically signed by: Rubin Horner M.D. 12/22/2024 12:23 PM
--- NOTE | 2024-12-22 12:38 | Anesthesiology Progress Note ---
Date of Service December 22, 2024 Anesthesia Post Procedure Vital Signs Vital Signs: Temp Pulse Pulse Pulse Resp BP BP 12/22/24 12:25 37.2 C 105 H 14 113/79 12/22/24 12:15 108 H 15 153/78 H 12/22/24 12:05 114 H 16 151/100 H 12/22/24 11:56 36.6 C 130 H 23 140/117 H 12/22/24 09:20 38.0 C H 103 H 18 157/85 H 12/22/24 08:50 12/22/24 07:33 36.8 C 90 20 148/72 H 12/22/24 07:33 12/22/24 00:12 89 143/79 H 12/21/24 23:00 12/21/24 23:00 36.7 C 96 H 18 147/76 H 12/21/24 22:53 36.7 C 96 H 16 147/76 H 12/21/24 22:33 37 C 12/21/24 22:15 100 H 18 158/77 H 12/21/24 21:30 104 H 17 12/21/24 21:10 158/89 H 12/21/24 21:07 115 H 20 158/89 H 12/21/24 21:03 103 H 17 12/21/24 20:42 102 H 16 12/21/24 20:00 109 H 15 12/21/24 19:33 96 H 16 12/21/24 19:06 96 H 14 12/21/24 18:55 12/21/24 18:36 95 H 12/21/24 18:34 100 H 20 134/90 Pulse Ox O2 Del Method O2 Flow Rate 12/22/24 12:25 93 Oxymask 2 12/22/24 12:15 96 Oxymask 4 12/22/24 12:05 98 Oxymask 4 12/22/24 11:56 95 Oxymask 4 12/22/24 09:20 97 Nasal Cannula 2 12/22/24 08:50 Nasal Cannula 3 12/22/24 07:33 97 Nasal Cannula 4 12/22/24 07:33 Nasal Cannula 3 12/22/24 00:12 12/21/24 23:00 Nasal Cannula 3 12/21/24 23:00 95 Nasal Cannula 3 12/21/24 22:53 95 Nasal Cannula 3 12/21/24 22:33 Nasal Cannula 2 12/21/24 22:15 98 Nasal Cannula 2 12/21/24 21:30 96 Nasal Cannula 2 12/21/24 21:10 12/21/24 21:07 97 Nasal Cannula 2 12/21/24 21:03 96 Nasal Cannula 2 12/21/24 20:42 96 Nasal Cannula 2 12/21/24 20:00 97 Nasal Cannula 2 12/21/24 19:33 97 Nasal Cannula 2 12/21/24 19:06 96 Nasal Cannula 2 12/21/24 18:55 86 L Room Air 12/21/24 18:36 12/21/24 18:34 92 Room Air Pain Intensity Left Hip: Pain Intensity: 6 Transfer of Care Handoff Completed per policy Notes Mental Status: alert / awake / arousable and participated in evaluation Patient Amnestic to Procedure: Yes Nausea / Vomiting: adequately controlled Pain: adequately controlled Airway Patency, RR, SpO2: stable & adequate BP & HR: stable & adequate Hydration State: stable & adequate Anesthetic Complications: no major complications apparent and Pt Satisfied with anesthetic care
[2024-12-22] MEDS: FAMOTIDINE/PF 20 MG/2 ML VIAL IV ONE (12:45)
[2024-12-22] MEDS: MAGNESIUM SULFATE / D5W 1 GM/100 ML BAG IV SCH (13:08)
--- NOTE | 2024-12-22 15:35 | Hospitalist Progress Note ---
Date of Service December 22, 2024 Assessment & Plan (1) Closed left hip fracture: Plan: 69-year-old female with past medical history significant for hypertension, diabetes, GERD, hyperlipidemia comes because of fall and found to have left hip fracture. Patient states she tripped over a computer cord and fell on the left side. Did not hit her head. No loss of consciousness. Denies any chest pain. No dizziness. No shortness of breath. Having a lot of pain in the left hip region. Having lot of spasms. Denies any fevers. No headache. No runny nose or sore throat. No cough. Eating and drinking okay. No nausea. No abdominal pain. Normal bowel and bladder movements. Prior to falling she was ambulating fine without any support. Closed left hip fracture Status post mechanical fall Labs are okay. EKG okay. Chest x-ray okay. Patient should be at acceptable risk to proceed with surgery N.p.o., IV fluids, IV pain meds as needed Ortho consult appreciate input and recommendation Status post left long trochanteric nail placement on 12/22/2024 Minimal pain following surgery and remains stable medically and hemodynamically Magnesium level is low at 1.4 and will be supplemented Hypertension On lisinopril Blood pressure is controlled Diabetes Hold metformin Will follow HbA1c levels-hemoglobin A1c is elevated at 8.3 Sliding scale Blood sugar remains stable and on the upper side on sliding scale Hyperlipidemia On statin GERD On omeprazole Osteoporosis On raloxifene DVT prophylaxis SCDs on right leg Further anticoagulation as per orthopedics Disposition Medical floor Full code. Admission and Anticipated Discharge Date Admission Date: December 21, 2024 Subjective 12/22/2024 The patient was seen and examined in medical floor She is status post fall with left hip fracture and s/p repair with left long trochanteric nail on 12/22/2024 Minimal pain in the left hip without radiculopathy Generally weak and denies any other significant symptoms Review of Systems Review of Systems: All systems reviewed and are unremarkable except as noted below Physical Exam Physical Exam: Lying in bed with minimal distress due to pain and effect of medications for anesthesia Constitutional: + ill appearing and average body habitus Eyes: PERRL, conjunctivae normal, anicteric sclerae ENMT: external ear and nose normal, oropharynx normal Neck: trachea midline, no thyromegaly Respiratory: no respiratory distress Auscultation: lungs clear to auscultation bilaterally Cardiovascular: Rate/Rhythm: regular rate, regular rhythm and + tachycardic Heart Sounds: normal S1 and normal S2; no murmur Extremities: no edema Gastrointestinal (Abdomen): Inspection/Auscultation: normal bowel sounds; abdomen not distended Percussion/Palpation: abdomen soft; abdomen nontender Musculoskeletal: Left hip pain with movement status post surgery Neurologic: normal touch/pain/proprioception and moves all extremities; no focal motor deficits Lymphatic: no cervical or axillary lymphadenopathy Results & Data Results & Data Vital Signs (Past 12 Hours) Vital Signs Temp Pulse Pulse Resp BP BP Pulse Ox 12/22/24 14:00 36.8 C 99 H 20 135/80 95 12/22/24 13:17 36.6 C 106 H 16 151/78 H 92 12/22/24 12:35 105 H 16 135/79 93 12/22/24 12:25 37.2 C 105 H 14 113/79 93 12/22/24 12:15 108 H 15 153/78 H 96 12/22/24 12:05 114 H 16 151/100 H 98 12/22/24 11:56 36.6 C 130 H 23 140/117 H 95 12/22/24 09:20 38.0 C H 103 H 18 157/85 H 97 12/22/24 08:50 12/22/24 07:33 36.8 C 90 20 148/72 H 97 12/22/24 07:33 O2 Del Method O2 Flow Rate 12/22/24 14:00 Nasal Cannula 2 12/22/24 13:17 Nasal Cannula 2 12/22/24 12:35 Oxymask 2 12/22/24 12:25 Oxymask 2 12/22/24 12:15 Oxymask 4 12/22/24 12:05 Oxymask 4 12/22/24 11:56 Oxymask 4 12/22/24 09:20 Nasal Cannula 2 12/22/24 08:50 Nasal Cannula 3 12/22/24 07:33 Nasal Cannula 4 12/22/24 07:33 Nasal Cannula 3 Laboratory Results Short CBC 12/21/24 12/22/24 Range/Units 18:30 07:05 WBC 9.91 9.71 (4.8-10.8) K/ul Hgb 12.6 11.6 L (12.0-16.0) g/dl Hct 35.8 L 33.3 L (37.0-47.0) % Plt Count 232 210 (130-400) K/uL BMP 12/21/24 12/22/24 18:30 07:05 Sodium 136 137 Potassium 3.9 4.6 Chloride 104 104 Carbon Dioxide 16 L 25 BUN 8 10 Creatinine 0.76 0.72 Glucose 282 H 179 H Calcium 8.9 8.7 Liver Function 12/21/24 Range/Units 18:30 Total Bilirubin 0.4 (0.2-1.0) mg/dl AST 65 H (13-39) U/L ALT 48 (7-52) U/L Alkaline Phosphatase 60 (34-104) U/L Albumin 4.1 (3.4-5.0) gm/dl Medications Administered Current Inpatient Medications Atorvastatin Calcium (Atorvastatin 10 Mg Tab) 10 mg PO HS [facility] Stop: 01/20/25 22:52 Last Admin: 12/22/24 00:12 Dose: 10 mg Dextrose (Dextrose 50% 50 Ml Syringe) 25 - 50 ml IV UD PRN; Protocol PRN Reason: Hypoglycemia Protocol Stop: 01/20/25 22:52 Glucagon (Glucagon For Inj 1 Mg Vial) 1 mg SQ UD PRN; Protocol PRN Reason: Hypoglycemia Protocol Stop: 01/20/25 22:52 Glucose (Glucose 40% Gel 15 Gm Tube) 15 - 30 gm PO UD PRN; Protocol PRN Reason: Hypoglycemia Protocol Stop: 01/20/25 22:52 Glucose (Glucose 10 Tab/Tube) 4 - 8 tab PO UD PRN; Protocol PRN Reason: Hypoglycemia Protocol Stop: 01/20/25 22:52 Hydromorphone HCl (Hydromorphone Inj 0.5 Mg/0.5 Ml Syr) 0.25 mg IV Q4H PRN PRN Reason: Moderate Pain (Scale 4, 5, 6) Stop: 01/04/25 22:52 Last Admin: 12/21/24 23:38 Dose: 0.25 mg Hydromorphone HCl (Hydromorphone Inj 0.5 Mg/0.5 Ml Syr) 0.5 mg IV Q4H PRN PRN Reason: Severe Pain (Scale 7, 8, 9,10) Stop: 01/04/25 22:52 Last Admin: 12/22/24 12:59 Dose: 0.5 mg Lactated Ringer's (Lr) 1,000 mls @ 125 mls/hr IV .Q8H [facility] Stop: 12/24/24 22:52 Last Admin: 12/22/24 07:58 Dose: 125 mls/hr Acetaminophen (Ofirmev) 1,000 mg in 100 mls @ 400 mls/hr IV Q8H PRN PRN Reason: Pain or Fever Stop: 12/24/24 22:52 Last Infusion: 12/22/24 05:31 Dose: Infused Cefazolin Sodium (Ancef 2000mg) 2,000 mg in 15 mls @ 3.75 mls/min IV Q8H [facility]; Protocol Stop: 12/23/24 02:03 Magnesium Sulfate/Dextrose (Magnesium Sulfate / D5w) 1 gm in 100 mls @ 50 mls/hr IV Q2H [facility] Stop: 12/22/24 16:59 Last Admin: 12/22/24 15:03 Dose: 50 mls/hr Insulin Aspart (Insulin Aspart Per Unit Charge) 0 units SC Q6 [facility] Stop: 01/20/25 23:44 Last Admin: 12/22/24 12:46 Dose: Not Given Lisinopril (Lisinopril 20 Mg Tab) 20 mg PO QPM [facility] Stop: 01/20/25 22:52 Last Admin: 12/22/24 00:13 Dose: 20 mg Miscellaneous (Carbohydrates For Hypoglycemia ) 15 - 30 gm PO UD PRN PRN Reason: Hypoglycemia Protocol Stop: 01/20/25 22:52 Ondansetron HCl (Ondansetron Inj 2 Mg/Ml 2 Ml Vial) 4 mg IV Q6H PRN PRN Reason: Nausea And Vomiting Stop: 01/20/25 23:08 Last Admin: 12/21/24 23:38 Dose: 4 mg Pantoprazole Sodium (Pantoprazole 40 Mg Tab) 40 mg PO QAM [facility] Stop: 01/21/25 08:59 Last Admin: 12/22/24 07:25 Dose: 40 mg Polyethylene Glycol (Polyethylene (Miralax) 17 Gm Pack) 17 gm PO DAILY PRN PRN Reason: Constipation Stop: 01/20/25 22:52 Raloxifene HCl (Raloxifene Hcl 60 Mg Tab) 60 mg PO QAM [facility] Stop: 01/21/25 08:59 Last Admin: 12/22/24 07:25 Dose: 60 mg Vitamin D (Cholecalciferol 25 Mcg (1000 Units) Tab) 25 mcg PO Q48H [facility] Stop: 01/21/25 08:59 Last Admin: 12/22/24 07:25 Dose: 25 mcg
[2024-12-22 16:11] LABS: Appearance Urine Cloudy (Clear); Bacteria Urine Automated None Seen (None Seen); Epithelial Cell Urine Auto 0-2 /hpf (0-2); Glucose Urine UA 3+ (Negative); RBC Urine Automated 0-2 /hpf (0-2); WBC Urine Automated 0-5 /hpf (0-5)
[2024-12-23 06:35] LABS: Hematocrit (blood only) 28.0 % (37.0-47.0); Hemoglobin 9.6 g/dl (12.0-16.0); Immature Granulocytes # (auto) 0.02 K/uL (0.01-0.20); Immature Granulocytes % (auto) 0.3 %; Mean Corpuscular Hemoglobin 34.2 pg (25.0-34.0); Mean Corpuscular Volume 99.6 fL (80.0-100.0); Platelet Count 172 K/uL (130-400); RDW Standard Deviation 56.9 fL (36.4-46.3); Red Blood Count 2.81 M/uL (4.20-5.40); White Blood Count 7.01 K/ul (4.8-10.8)
[2024-12-23 07:23] LABS: Anion Gap 7.0 (3-11); Calcium 8.1 mg/dl (8.6-10.3); Carbon Dioxide 25.0 mmol/L (21-32); Chloride 107.0 mmol/L (98-107); Magnesium 2.0 mg/dl (1.7-2.4); Potassium 4.5 mmol/L (3.5-5.1); Sodium 139.0 mmol/L (136-145)
[2024-12-23 07:28] LABS: Blood Urea Nitrogen 11.0 mg/dl (6-23); Creatinine Clr Calc Pharmacy 53.9 ml/min; Glucose 159.0 mg/dl (70-99(Fasting))
--- NOTE | 2024-12-23 07:32 | Orthopedic Progress Note ---
Date of Service December 23, 2024 Assessment & Plan (1) Closed intertrochanteric fracture of left femur: * Continue Current Treatment * Now s/p ORIF L femur fracture * Disposition: TBD * Daily treatment: Physical Therapy/ Occupational Therapy per protocol * Weight bearing status: WBAT * Continue to monitor for ABLA * Pain control * DVT prophylaxis, ASA x6 weeks * Office/hospital f/u 2 weeks for progress check and staple/suture removal * Remainder care per primary team * Stable for discharge from ortho standpoint, further planning per primary team Subjective .Active Problems: S/p left TFN POD 1 69 y/o female s/p left TFN. Doing well overall, pain managed and improved function. Denies fever/chills, chest pain/SOB, nausea/vomiting. Otherwise no complaints. Review of Systems All systems reviewed & are unremarkable except as noted in HPI & below. Physical Exam . * General: Alert and oriented, no acute distress * Constitutional: well-developed, well-nourished. * Respiratory: Normal respiratory effort, no distress * Gastrointestinal: No tenderness to palpation, no rigidity or guarding. * Skin: No rash or lesion. * Neurologic: Grossly normal * Musculoskeletal: Left hip surgical dressing CDI, not removed for exam. Otherwise no obvious deformity or overlying skin changes. Diffuse TTP proximal thigh and hip region. Otherwise no specific tenderness of distal thigh, lower leg, foot/ankle. AROM hip flexion intact. AROM foot/ankle intact. Sensation intact plantar/dorsal foot. Brisk capillary refill. Results & Data Results & Data Laboratory Results . Diagnostic Findings . PG Care Time/CCT Total # of Minutes Spent Total Time Spent with Patient: Total time spent is greater than 50% in coordination of care (as documented) at patient's floor/unit and/or counseling patient: Coding Level of Care Code 92890 Post Operative Follow-Up Diagnoses Closed intertrochanteric fracture of left femur S72.142A
--- NOTE | 2024-12-23 16:00 | Hospitalist Progress Note ---
Date of Service December 23, 2024 Assessment & Plan (1) Closed left hip fracture: Plan: 69-year-old female with past medical history significant for hypertension, diabetes, GERD, hyperlipidemia comes because of fall and found to have left hip fracture. Patient states she tripped over a computer cord and fell on the left side. Did not hit her head. No loss of consciousness. Denies any chest pain. No dizziness. No shortness of breath. Having a lot of pain in the left hip region. Having lot of spasms. Denies any fevers. No headache. No runny nose or sore throat. No cough. Eating and drinking okay. No nausea. No abdominal pain. Normal bowel and bladder movements. Prior to falling she was ambulating fine without any support. Closed left hip fracture Status post mechanical fall Labs are okay. EKG okay. Chest x-ray okay. Patient should be at acceptable risk to proceed with surgery N.p.o., IV fluids, IV pain meds as needed Ortho consult appreciate input and recommendation Status post left long trochanteric nail placement on 12/22/2024 Minimal pain following surgery and remains stable medically and hemodynamically Magnesium level is low at 1.4 and will be supplemented Pain is controlled reasonably and will add oxycodone 5 mg Q6 hourly as needed for better control of pain Will give a small dose of baclofen for muscle spasm Continue PT and OT May need placement Hypertension On lisinopril Blood pressure is controlled Diabetes Hold metformin Will follow HbA1c levels-hemoglobin A1c is elevated at 8.3 Sliding scale Blood sugar remains stable and on the upper side on sliding scale Hyperlipidemia On statin GERD On omeprazole Osteoporosis On raloxifene DVT prophylaxis SCDs on right leg Further anticoagulation as per orthopedics Disposition Medical floor Full code. Admission and Anticipated Discharge Date Admission Date: December 21, 2024 Subjective 12/22/2024 The patient was seen and examined in medical floor She is status post fall with left hip fracture and s/p repair with left long trochanteric nail on 12/22/2024 Minimal pain in the left hip without radiculopathy Generally weak and denies any other significant symptoms 12/23/2024 The patient was seen and examined in medical floor She is out of bed on a chair with minimal pain Has been having muscle spasm and requested to have some muscle relaxant Denies any other symptoms Review of Systems Review of Systems: All systems reviewed and are unremarkable except as noted below Physical Exam Physical Exam: Lying in bed with minimal distress due to pain and effect of medications for anesthesia Constitutional: + ill appearing and average body habitus Eyes: PERRL, conjunctivae normal, anicteric sclerae ENMT: external ear and nose normal, oropharynx normal Neck: trachea midline, no thyromegaly Respiratory: no respiratory distress Auscultation: lungs clear to auscultation bilaterally Cardiovascular: Rate/Rhythm: regular rate, regular rhythm and + tachycardic Heart Sounds: normal S1 and normal S2; no murmur Extremities: no edema Gastrointestinal (Abdomen): Inspection/Auscultation: normal bowel sounds; abdomen not distended Percussion/Palpation: abdomen soft; abdomen nontender Neurologic: normal touch/pain/proprioception and moves all extremities; no focal motor deficits Lymphatic: no cervical or axillary lymphadenopathy Results & Data Results & Data Vital Signs (Past 12 Hours) Vital Signs Temp Pulse Resp BP BP Pulse Ox O2 Del Method 12/23/24 15:00 37.3 C 108 H 18 133/76 94 Nasal Cannula 12/23/24 08:42 Nasal Cannula 12/23/24 07:18 37.3 C 102 H 18 123/62 95 Nasal Cannula O2 Flow Rate 12/23/24 15:00 2.0 12/23/24 08:42 3 12/23/24 07:18 2.0 Laboratory Results Short CBC 12/23/24 Range/Units 05:31 WBC 7.01 (4.8-10.8) K/ul Hgb 9.6 L (12.0-16.0) g/dl Hct 28.0 L (37.0-47.0) % Plt Count 172 (130-400) K/uL BMP 12/23/24 05:31 Sodium 139 Potassium 4.5 Chloride 107 Carbon Dioxide 25 BUN 11 Creatinine 0.83 Glucose 159 H Calcium 8.1 L Urine 12/22/24 Range/Units 15:41 Urine Color Yellow Urine Appearance Cloudy A (Clear) Urine pH 5.5 (4.5-7.5) Ur Specific [place] 1.025 (1.000-1.030) Urine Protein Negative (Negative) Urine Glucose (UA) 3+ H (Negative) Medications Administered Current Inpatient Medications Atorvastatin Calcium (Atorvastatin 10 Mg Tab) 10 mg PO HS [facility] Stop: 01/20/25 22:52 Last Admin: 12/22/24 20:25 Dose: 10 mg Baclofen (Baclofen 10 Mg Tab) 5 mg PO TID [facility] Stop: 01/22/25 20:59 Dextrose (Dextrose 50% 50 Ml Syringe) 25 - 50 ml IV UD PRN; Protocol PRN Reason: Hypoglycemia Protocol Stop: 01/20/25 22:52 Glucagon (Glucagon For Inj 1 Mg Vial) 1 mg SQ UD PRN; Protocol PRN Reason: Hypoglycemia Protocol Stop: 01/20/25 22:52 Glucose (Glucose 40% Gel 15 Gm Tube) 15 - 30 gm PO UD PRN; Protocol PRN Reason: Hypoglycemia Protocol Stop: 01/20/25 22:52 Glucose (Glucose 10 Tab/Tube) 4 - 8 tab PO UD PRN; Protocol PRN Reason: Hypoglycemia Protocol Stop: 01/20/25 22:52 Hydromorphone HCl (Hydromorphone Inj 0.5 Mg/0.5 Ml Syr) 0.25 mg IV Q4H PRN PRN Reason: Moderate Pain (Scale 4, 5, 6) Stop: 01/04/25 22:52 Last Admin: 12/21/24 23:38 Dose: 0.25 mg Hydromorphone HCl (Hydromorphone Inj 0.5 Mg/0.5 Ml Syr) 0.5 mg IV Q4H PRN PRN Reason: Severe Pain (Scale 7, 8, 9,10) Stop: 01/04/25 22:52 Last Admin: 12/23/24 09:06 Dose: 0.5 mg Acetaminophen (Ofirmev) 1,000 mg in 100 mls @ 400 mls/hr IV Q8H PRN PRN Reason: Pain or Fever Stop: 12/24/24 22:52 Last Infusion: 12/22/24 05:31 Dose: Infused Insulin Aspart (Insulin Aspart Per Unit Charge) 0 units SC ACHS [facility] Stop: 01/21/25 20:59 Last Admin: 12/23/24 12:27 Dose: 2 units Lisinopril (Lisinopril 20 Mg Tab) 20 mg PO QPM [facility] Stop: 01/20/25 22:52 Last Admin: 12/22/24 20:25 Dose: 20 mg Miscellaneous (Carbohydrates For Hypoglycemia ) 15 - 30 gm PO UD PRN PRN Reason: Hypoglycemia Protocol Stop: 01/20/25 22:52 Ondansetron HCl (Ondansetron Inj 2 Mg/Ml 2 Ml Vial) 4 mg IV Q6H PRN PRN Reason: Nausea And Vomiting Stop: 01/20/25 23:08 Last Admin: 12/21/24 23:38 Dose: 4 mg Oxycodone HCl (Oxycodone Hcl Ir 5 Mg Tab (Immediate Release)) 5 mg PO Q6H PRN PRN Reason: Pain Stop: 01/06/25 10:27 Last Admin: 12/23/24 10:38 Dose: 5 mg Pantoprazole Sodium (Pantoprazole 40 Mg Tab) 40 mg PO QAM [facility] Stop: 01/21/25 08:59 Last Admin: 12/23/24 07:34 Dose: 40 mg Polyethylene Glycol (Polyethylene (Miralax) 17 Gm Pack) 17 gm PO DAILY PRN PRN Reason: Constipation Stop: 01/20/25 22:52 Raloxifene HCl (Raloxifene Hcl 60 Mg Tab) 60 mg PO QAM [facility] Stop: 01/21/25 08:59 Last Admin: 12/23/24 07:34 Dose: 60 mg Vitamin D (Cholecalciferol 25 Mcg (1000 Units) Tab) 25 mcg PO Q48H [facility] Stop: 01/21/25 08:59 Last Admin: 12/22/24 07:25 Dose: 25 mcg
[2024-12-23] MEDS: BACLOFEN 10 MG TAB PO SCH (20:38)
--- NOTE | 2024-12-24 05:39 | Electrocardiogram Report ---
Test Reason : Blood Pressure : */* mmHG Vent. Rate : 99 BPM Atrial Rate : 99 BPM P-R Int : 144 ms QRS Dur : 62 ms QT Int : 354 ms P-R-T Axes : 56 36 51 degrees QTcB Int : 454 ms Normal sinus rhythm Normal ECG No previous ECGs available Confirmed by Trevon Zavala ([id number]) on 12/24/2024 5:39:12 AM Referred By: REFERRED SELF Confirmed By: Trevon Zavala
[2024-12-24] MEDS: METOPROLOL TARTRATE 25 MG TAB PO STA (07:52)
--- NOTE | 2024-12-24 14:37 | Hospitalist Progress Note ---
Date of Service December 24, 2024 Assessment & Plan (1) Closed left hip fracture: Plan: 69-year-old female with past medical history significant for hypertension, diabetes, GERD, hyperlipidemia comes because of fall and found to have left hip fracture. Patient states she tripped over a computer cord and fell on the left side. Did not hit her head. No loss of consciousness. Denies any chest pain. No dizziness. No shortness of breath. Having a lot of pain in the left hip region. Having lot of spasms. Denies any fevers. No headache. No runny nose or sore throat. No cough. Eating and drinking okay. No nausea. No abdominal pain. Normal bowel and bladder movements. Prior to falling she was ambulating fine without any support. Closed left hip fracture Status post mechanical fall Labs are okay. EKG okay. Chest x-ray okay. Patient should be at acceptable risk to proceed with surgery N.p.o., IV fluids, IV pain meds as needed Ortho consult appreciate input and recommendation Status post left long trochanteric nail placement on 12/22/2024 Minimal pain following surgery and remains stable medically and hemodynamically Magnesium level is low at 1.4 and will be supplemented Pain is controlled reasonably and will add oxycodone 5 mg Q6 hourly as needed for better control of pain Will give a small dose of baclofen for muscle spasm Continue PT and OT May need placement Remains medically stable and continue physical therapy Likely discharge on Thursday Hypertension On lisinopril Blood pressure is controlled Remains tachycardic at around 114/min likely secondary to dehydration Will advised to drink more fluid Diabetes Hold metformin Will follow HbA1c levels-hemoglobin A1c is elevated at 8.3 Sliding scale Blood sugar remains stable and on the upper side on sliding scale Hyperlipidemia On statin GERD On omeprazole Osteoporosis On raloxifene DVT prophylaxis SCDs on right leg Further anticoagulation as per orthopedics Disposition Medical floor Full code. Admission and Anticipated Discharge Date Admission Date: December 21, 2024 Subjective 12/22/2024 The patient was seen and examined in medical floor She is status post fall with left hip fracture and s/p repair with left long trochanteric nail on 12/22/2024 Minimal pain in the left hip without radiculopathy Generally weak and denies any other significant symptoms 12/23/2024 The patient was seen and examined in medical floor She is out of bed on a chair with minimal pain Has been having muscle spasm and requested to have some muscle relaxant Denies any other symptoms 12/24/2024 Patient was seen and examined in medical floor She has been much better without any significant symptoms Pain is reasonably controlled and she has been getting physical therapy Review of Systems Review of Systems: All systems reviewed and are unremarkable except as noted below Physical Exam Physical Exam: Lying in bed with minimal distress due to pain and effect of medications for anesthesia Constitutional: + ill appearing and average body habitus Eyes: PERRL, conjunctivae normal, anicteric sclerae ENMT: external ear and nose normal, oropharynx normal Neck: trachea midline, no thyromegaly Respiratory: no respiratory distress Auscultation: lungs clear to auscultation bilaterally Cardiovascular: Rate/Rhythm: regular rate, regular rhythm and + tachycardic Heart Sounds: normal S1 and normal S2; no murmur Extremities: no edema Gastrointestinal (Abdomen): Inspection/Auscultation: normal bowel sounds; abdomen not distended Percussion/Palpation: abdomen soft; abdomen nontender Neurologic: normal touch/pain/proprioception and moves all extremities; no focal motor deficits Lymphatic: no cervical or axillary lymphadenopathy Results & Data Results & Data Vital Signs (Past 12 Hours) Vital Signs Temp Pulse Resp BP Pulse Ox O2 Del Method 12/24/24 07:33 37.2 C 114 H 16 134/80 94 Room Air Medications Administered Current Inpatient Medications Atorvastatin Calcium (Atorvastatin 10 Mg Tab) 10 mg PO HS [facility] Stop: 01/20/25 22:52 Last Admin: 12/23/24 20:38 Dose: 10 mg Baclofen (Baclofen 10 Mg Tab) 5 mg PO TID [facility] Stop: 01/22/25 20:59 Last Admin: 12/24/24 13:42 Dose: 5 mg Dextrose (Dextrose 50% 50 Ml Syringe) 25 - 50 ml IV UD PRN; Protocol PRN Reason: Hypoglycemia Protocol Stop: 01/20/25 22:52 Glucagon (Glucagon For Inj 1 Mg Vial) 1 mg SQ UD PRN; Protocol PRN Reason: Hypoglycemia Protocol Stop: 01/20/25 22:52 Glucose (Glucose 40% Gel 15 Gm Tube) 15 - 30 gm PO UD PRN; Protocol PRN Reason: Hypoglycemia Protocol Stop: 01/20/25 22:52 Glucose (Glucose 10 Tab/Tube) 4 - 8 tab PO UD PRN; Protocol PRN Reason: Hypoglycemia Protocol Stop: 01/20/25 22:52 Hydromorphone HCl (Hydromorphone Inj 0.5 Mg/0.5 Ml Syr) 0.25 mg IV Q4H PRN PRN Reason: Moderate Pain (Scale 4, 5, 6) Stop: 01/04/25 22:52 Last Admin: 12/21/24 23:38 Dose: 0.25 mg Hydromorphone HCl (Hydromorphone Inj 0.5 Mg/0.5 Ml Syr) 0.5 mg IV Q4H PRN PRN Reason: Severe Pain (Scale 7, 8, 9,10) Stop: 01/04/25 22:52 Last Admin: 12/24/24 08:01 Dose: 0.5 mg Acetaminophen (Ofirmev) 1,000 mg in 100 mls @ 400 mls/hr IV Q8H PRN PRN Reason: Pain or Fever Stop: 12/24/24 22:52 Last Infusion: 12/22/24 05:31 Dose: Infused Insulin Aspart (Insulin Aspart Per Unit Charge) 0 units SC ACHS [facility] Stop: 01/21/25 20:59 Last Admin: 12/24/24 13:24 Dose: 3 units Lisinopril (Lisinopril 20 Mg Tab) 20 mg PO QPM [facility] Stop: 01/20/25 22:52 Last Admin: 12/23/24 20:38 Dose: 20 mg Miscellaneous (Carbohydrates For Hypoglycemia ) 15 - 30 gm PO UD PRN PRN Reason: Hypoglycemia Protocol Stop: 01/20/25 22:52 Ondansetron HCl (Ondansetron Inj 2 Mg/Ml 2 Ml Vial) 4 mg IV Q6H PRN PRN Reason: Nausea And Vomiting Stop: 01/20/25 23:08 Last Admin: 12/21/24 23:38 Dose: 4 mg Oxycodone HCl (Oxycodone Hcl Ir 5 Mg Tab (Immediate Release)) 5 mg PO Q6H PRN PRN Reason: Pain Stop: 01/06/25 10:27 Last Admin: 12/24/24 13:51 Dose: 5 mg Pantoprazole Sodium (Pantoprazole 40 Mg Tab) 40 mg PO QAM [facility] Stop: 01/21/25 08:59 Last Admin: 12/24/24 07:54 Dose: 40 mg Polyethylene Glycol (Polyethylene (Miralax) 17 Gm Pack) 17 gm PO DAILY PRN PRN Reason: Constipation Stop: 01/20/25 22:52 Raloxifene HCl (Raloxifene Hcl 60 Mg Tab) 60 mg PO QAM [facility] Stop: 01/21/25 08:59 Last Admin: 12/24/24 07:54 Dose: 60 mg Vitamin D (Cholecalciferol 25 Mcg (1000 Units) Tab) 25 mcg PO Q48H [facility] Stop: 01/21/25 08:59 Last Admin: 12/24/24 07:54 Dose: 25 mcg
--- NOTE | 2024-12-25 13:48 | Hospitalist Progress Note ---
Date of Service December 25, 2024 Assessment & Plan (1) Closed left hip fracture: Plan: 69-year-old female with past medical history significant for hypertension, diabetes, GERD, hyperlipidemia comes because of fall and found to have left hip fracture. Patient states she tripped over a computer cord and fell on the left side. Did not hit her head. No loss of consciousness. Denies any chest pain. No dizziness. No shortness of breath. Having a lot of pain in the left hip region. Having lot of spasms. Denies any fevers. No headache. No runny nose or sore throat. No cough. Eating and drinking okay. No nausea. No abdominal pain. Normal bowel and bladder movements. Prior to falling she was ambulating fine without any support. Closed left hip fracture Status post mechanical fall Labs are okay. EKG okay. Chest x-ray okay. Patient should be at acceptable risk to proceed with surgery N.p.o., IV fluids, IV pain meds as needed Ortho consult appreciate input and recommendation Status post left long trochanteric nail placement on 12/22/2024 Minimal pain following surgery and remains stable medically and hemodynamically Magnesium level is low at 1.4 and will be supplemented Pain is controlled reasonably and will add oxycodone 5 mg Q6 hourly as needed for better control of pain Will give a small dose of baclofen for muscle spasm Continue PT and OT May need placement Remains medically stable and continue physical therapy Likely discharge on Thursday Much better with decreasing pain and no other significant symptoms Hypertension On lisinopril Blood pressure is controlled Remains tachycardic at around 114/min likely secondary to dehydration Will advised to drink more fluid Remains tachycardic likely secondary to dehydration and pain induced Does not have any infection Diabetes Hold metformin Will follow HbA1c levels-hemoglobin A1c is elevated at 8.3 Sliding scale Blood sugar remains stable and on the upper side on sliding scale Hyperlipidemia On statin GERD On omeprazole Osteoporosis On raloxifene DVT prophylaxis SCDs on right leg Further anticoagulation as per orthopedics Disposition Medical floor Full code. Admission and Anticipated Discharge Date Admission Date: December 21, 2024 Subjective 12/22/2024 The patient was seen and examined in medical floor She is status post fall with left hip fracture and s/p repair with left long trochanteric nail on 12/22/2024 Minimal pain in the left hip without radiculopathy Generally weak and denies any other significant symptoms 12/23/2024 The patient was seen and examined in medical floor She is out of bed on a chair with minimal pain Has been having muscle spasm and requested to have some muscle relaxant Denies any other symptoms 12/24/2024 Patient was seen and examined in medical floor She has been much better without any significant symptoms Pain is reasonably controlled and she has been getting physical therapy LUNGS: Breath sounds equal, no wheezes, rales, or rhonchi heard. No tachypnea or dyspnea. 12/25/2024 The patient was seen and examined in medical floor She has been much better today Decreasing pain in the hip and has been getting physical therapy Awaiting further PT evaluation and recommendation Review of Systems Review of Systems: All systems reviewed and are unremarkable except as noted below Physical Exam Physical Exam: Lying in bed with minimal distress due to pain and effect of medications for anesthesia Constitutional: + ill appearing and average body habitus Eyes: PERRL, conjunctivae normal, anicteric sclerae ENMT: external ear and nose normal, oropharynx normal Neck: trachea midline, no thyromegaly Respiratory: no respiratory distress Auscultation: lungs clear to auscultation bilaterally Cardiovascular: Rate/Rhythm: regular rate, regular rhythm and + tachycardic Heart Sounds: normal S1 and normal S2; no murmur Extremities: no edema Gastrointestinal (Abdomen): Inspection/Auscultation: normal bowel sounds; abdomen not distended Percussion/Palpation: abdomen soft; abdomen nontender Neurologic: normal touch/pain/proprioception and moves all extremities; no focal motor deficits Lymphatic: no cervical or axillary lymphadenopathy Results & Data Results & Data Vital Signs (Past 12 Hours) Vital Signs Temp Pulse Resp BP Pulse Ox O2 Del Method 12/25/24 07:34 36.8 C 115 H 16 118/68 90 Nasal Cannula Medications Administered Current Inpatient Medications Atorvastatin Calcium (Atorvastatin 10 Mg Tab) 10 mg PO HS [facility] Stop: 01/20/25 22:52 Last Admin: 12/24/24 20:29 Dose: 10 mg Baclofen (Baclofen 10 Mg Tab) 5 mg PO TID [facility] Stop: 01/22/25 20:59 Last Admin: 12/25/24 09:09 Dose: 5 mg Dextrose (Dextrose 50% 50 Ml Syringe) 25 - 50 ml IV UD PRN; Protocol PRN Reason: Hypoglycemia Protocol Stop: 01/20/25 22:52 Glucagon (Glucagon For Inj 1 Mg Vial) 1 mg SQ UD PRN; Protocol PRN Reason: Hypoglycemia Protocol Stop: 01/20/25 22:52 Glucose (Glucose 40% Gel 15 Gm Tube) 15 - 30 gm PO UD PRN; Protocol PRN Reason: Hypoglycemia Protocol Stop: 01/20/25 22:52 Glucose (Glucose 10 Tab/Tube) 4 - 8 tab PO UD PRN; Protocol PRN Reason: Hypoglycemia Protocol Stop: 01/20/25 22:52 Hydromorphone HCl (Hydromorphone Inj 0.5 Mg/0.5 Ml Syr) 0.25 mg IV Q4H PRN PRN Reason: Moderate Pain (Scale 4, 5, 6) Stop: 01/04/25 22:52 Last Admin: 12/21/24 23:38 Dose: 0.25 mg Hydromorphone HCl (Hydromorphone Inj 0.5 Mg/0.5 Ml Syr) 0.5 mg IV Q4H PRN PRN Reason: Severe Pain (Scale 7, 8, 9,10) Stop: 01/04/25 22:52 Last Admin: 12/25/24 09:08 Dose: 0.5 mg Insulin Aspart (Insulin Aspart Per Unit Charge) 0 units SC ACHS [facility] Stop: 01/21/25 20:59 Last Admin: 12/25/24 12:53 Dose: 2 units Lisinopril (Lisinopril 20 Mg Tab) 20 mg PO QPM [facility] Stop: 01/20/25 22:52 Last Admin: 12/24/24 20:29 Dose: 20 mg Miscellaneous (Carbohydrates For Hypoglycemia ) 15 - 30 gm PO UD PRN PRN Reason: Hypoglycemia Protocol Stop: 01/20/25 22:52 Ondansetron HCl (Ondansetron Inj 2 Mg/Ml 2 Ml Vial) 4 mg IV Q6H PRN PRN Reason: Nausea And Vomiting Stop: 01/20/25 23:08 Last Admin: 12/21/24 23:38 Dose: 4 mg Oxycodone HCl (Oxycodone Hcl Ir 5 Mg Tab (Immediate Release)) 5 mg PO Q6H PRN PRN Reason: Pain Stop: 01/06/25 10:27 Last Admin: 12/25/24 12:54 Dose: 5 mg Pantoprazole Sodium (Pantoprazole 40 Mg Tab) 40 mg PO QAM [facility] Stop: 01/21/25 08:59 Last Admin: 12/25/24 09:10 Dose: 40 mg Polyethylene Glycol (Polyethylene (Miralax) 17 Gm Pack) 17 gm PO DAILY PRN PRN Reason: Constipation Stop: 01/20/25 22:52 Raloxifene HCl (Raloxifene Hcl 60 Mg Tab) [facility] [place]: 01/21/25 08:59 Last Admin: 12/25/24 09:10 Dose: 60 mg Vitamin D (Cholecalciferol 25 Mcg (1000 Units) Tab) 25 mcg PO Q48H [facility] Stop: 01/21/25 08:59 Last Admin: 12/24/24 07:54 Dose: 25 mcg
[2024-12-26 07:14] LABS: Hematocrit (blood only) 28.8 % (37.0-47.0); Hemoglobin 9.9 g/dl (12.0-16.0); Immature Granulocytes # (auto) 0.04 K/uL (0.01-0.20); Immature Granulocytes % (auto) 0.6 %; Mean Corpuscular Hemoglobin 34.0 pg (25.0-34.0); Mean Corpuscular Volume 99.0 fL (80.0-100.0); Platelet Count 208 K/uL (130-400); RDW Standard Deviation 55.8 fL (36.4-46.3); Red Blood Count 2.91 M/uL (4.20-5.40); White Blood Count 6.60 K/ul (4.8-10.8)
[2024-12-26 07:47] LABS: Anion Gap 9.0 (3-11); Blood Urea Nitrogen 21.0 mg/dl (6-23); Calcium 8.8 mg/dl (8.6-10.3); Carbon Dioxide 25.0 mmol/L (21-32); Chloride 108.0 mmol/L (98-107); Creatinine Clr Calc Pharmacy 60.4 ml/min; Glucose 194.0 mg/dl (70-99(Fasting)); Magnesium 1.5 mg/dl (1.7-2.4); Potassium 3.7 mmol/L (3.5-5.1); Sodium 142.0 mmol/L (136-145)
--- NOTE | 2024-12-26 14:30 | Hospitalist Progress Note ---
Date of Service December 26, 2024 Assessment & Plan (1) Closed left hip fracture: Plan: 69-year-old female with past medical history significant for hypertension, diabetes, GERD, hyperlipidemia comes because of fall and found to have left hip fracture. Patient states she tripped over a computer cord and fell on the left side. Did not hit her head. No loss of consciousness. Denies any chest pain. No dizziness. No shortness of breath. Having a lot of pain in the left hip region. Having lot of spasms. Denies any fevers. No headache. No runny nose or sore throat. No cough. Eating and drinking okay. No nausea. No abdominal pain. Normal bowel and bladder movements. Prior to falling she was ambulating fine without any support. Closed left hip fracture Status post mechanical fall Labs are okay. EKG okay. Chest x-ray okay. Patient should be at acceptable risk to proceed with surgery N.p.o., IV fluids, IV pain meds as needed Ortho consult appreciate input and recommendation Status post left long trochanteric nail placement on 12/22/2024 Minimal pain following surgery and remains stable medically and hemodynamically Magnesium level is low at 1.4 and will be supplemented Pain is controlled reasonably and will add oxycodone 5 mg Q6 hourly as needed for better control of pain Will give a small dose of baclofen for muscle spasm Continue PT and OT May need placement Remains medically stable and continue physical therapy Likely discharge on Thursday Much better with decreasing pain and no other significant symptoms Remains stable with minimal pain with ambulation Has had PT and recommended rehab and case managers has been working on it Hypertension On lisinopril Blood pressure is controlled Remains tachycardic at around 114/min likely secondary to dehydration Will advised to drink more fluid Remains tachycardic likely secondary to dehydration and pain induced Does not have any infection- blood pressure remains stable Diabetes Hold metformin Will follow HbA1c levels-hemoglobin A1c is elevated at 8.3 Sliding scale Blood sugar remains stable and on the upper side on sliding scale Hyperlipidemia On statin GERD On omeprazole Osteoporosis On raloxifene DVT prophylaxis SCDs on right leg Further anticoagulation as per orthopedics Disposition Medical floor Full code. Admission and Anticipated Discharge Date Admission Date: December 21, 2024 Subjective 12/22/2024 The patient was seen and examined in medical floor She is status post fall with left hip fracture and s/p repair with left long trochanteric nail on 12/22/2024 Minimal pain in the left hip without radiculopathy Generally weak and denies any other significant symptoms 12/23/2024 The patient was seen and examined in medical floor She is out of bed on a chair with minimal pain Has been having muscle spasm and requested to have some muscle relaxant Denies any other symptoms 12/24/2024 Patient was seen and examined in medical floor She has been much better without any significant symptoms Pain is reasonably controlled and she has been getting physical therapy LUNGS: Breath sounds equal, no wheezes, rales, or rhonchi heard. No tachypnea or dyspnea. 12/25/2024 The patient was seen and examined in medical floor She has been much better today Decreasing pain in the hip and has been getting physical therapy Awaiting further PT evaluation and recommendation 12/26/2024 The patient was seen and examined in medical floor She has been stable and the pain is controlled with current medications Has had PT evaluation and recommended rehab Review of Systems Review of Systems: All systems reviewed and are unremarkable except as noted below Physical Exam Physical Exam: Lying in bed with minimal distress due to pain and effect of medications for anesthesia Constitutional: + ill appearing and average body habitus Eyes: PERRL, conjunctivae normal, anicteric sclerae ENMT: external ear and nose normal, oropharynx normal Neck: trachea midline, no thyromegaly Respiratory: no respiratory distress Auscultation: lungs clear to auscultation bilaterally Cardiovascular: Rate/Rhythm: regular rate, regular rhythm and + tachycardic Heart Sounds: normal S1 and normal S2; no murmur Extremities: no edema Gastrointestinal (Abdomen): Inspection/Auscultation: normal bowel sounds; abdomen not distended Percussion/Palpation: abdomen soft; abdomen nontender Neurologic: normal touch/pain/proprioception and moves all extremities; no focal motor deficits Lymphatic: no cervical or axillary lymphadenopathy Results & Data Results & Data Vital Signs (Past 12 Hours) Vital Signs Temp Pulse Resp BP Pulse Ox O2 Del Method O2 Flow Rate 12/26/24 12:26 36.7 C 109 H 18 101/67 93 Nasal Cannula 2 12/26/24 07:30 37.0 C 101 H 16 112/70 94 Nasal Cannula 2 Laboratory Results Short CBC 12/26/24 Range/Units 06:37 WBC 6.60 (4.8-10.8) K/ul Hgb 9.9 L (12.0-16.0) g/dl Hct 28.8 L (37.0-47.0) % Plt Count 208 (130-400) K/uL [facility] 12/26/24 06:37 Sodium 142 Potassium 3.7 Chloride 108 H Carbon Dioxide 25 BUN 21 Creatinine 0.74 Glucose 194 H Calcium 8.8 Medications Administered Current Inpatient Medications Atorvastatin Calcium (Atorvastatin 10 Mg Tab) 10 mg PO HS [facility] Stop: 01/20/25 22:52 Last Admin: 12/25/24 20:58 Dose: 10 mg Baclofen (Baclofen 10 Mg Tab) 5 mg PO TID [facility] Stop: 01/22/25 20:59 Last Admin: 12/26/24 08:55 Dose: 5 mg Dextrose (Dextrose 50% 50 Ml Syringe) 25 - 50 ml IV UD PRN; Protocol PRN Reason: Hypoglycemia Protocol Stop: 01/20/25 22:52 Glucagon (Glucagon For Inj 1 Mg Vial) 1 mg SQ UD PRN; Protocol PRN Reason: Hypoglycemia Protocol Stop: 01/20/25 22:52 Glucose (Glucose 40% Gel 15 Gm Tube) 15 - 30 gm PO UD PRN; Protocol PRN Reason: Hypoglycemia Protocol Stop: 01/20/25 22:52 Glucose (Glucose 10 Tab/Tube) 4 - 8 tab PO UD PRN; Protocol PRN Reason: Hypoglycemia Protocol Stop: 01/20/25 22:52 Hydromorphone HCl (Hydromorphone Inj 0.5 Mg/0.5 Ml Syr) 0.25 mg IV Q4H PRN PRN Reason: Moderate Pain (Scale 4, 5, 6) Stop: 01/04/25 22:52 Last Admin: 12/21/24 23:38 Dose: 0.25 mg Hydromorphone HCl (Hydromorphone Inj 0.5 Mg/0.5 Ml Syr) 0.5 mg IV Q4H PRN PRN Reason: Severe Pain (Scale 7, 8, 9,10) Stop: 01/04/25 22:52 Last Admin: 12/26/24 09:15 Dose: 0.5 mg Insulin Aspart (Insulin Aspart Per Unit Charge) 0 units SC ACHS [facility] Stop: 01/21/25 20:59 Last Admin: 12/26/24 13:41 Dose: Not Given Lisinopril (Lisinopril 20 Mg Tab) 20 mg PO QPM [facility] Stop: 01/20/25 22:52 Last Admin: 12/25/24 20:59 Dose: 20 mg Miscellaneous (Carbohydrates For Hypoglycemia ) 15 - 30 gm PO UD PRN PRN Reason: Hypoglycemia Protocol Stop: 01/20/25 22:52 Ondansetron HCl (Ondansetron Inj 2 Mg/Ml 2 Ml Vial) 4 mg IV Q6H PRN PRN Reason: Nausea And Vomiting Stop: 01/20/25 23:08 Last Admin: 12/21/24 23:38 Dose: 4 mg Oxycodone HCl (Oxycodone Hcl Ir 5 Mg Tab (Immediate Release)) 5 mg PO Q6H PRN PRN Reason: Pain Stop: 01/06/25 10:27 Last Admin: 12/26/24 12:25 Dose: 5 mg Pantoprazole Sodium (Pantoprazole 40 Mg Tab) 40 mg PO QAM [facility] Stop: 01/21/25 08:59 Last Admin: 12/26/24 08:55 Dose: 40 mg Polyethylene Glycol (Polyethylene (Miralax) 17 Gm Pack) 17 gm PO DAILY PRN PRN Reason: Constipation Stop: 01/20/25 22:52 Raloxifene HCl (Raloxifene Hcl 60 Mg Tab) 60 mg PO QAM [facility] Stop: 01/21/25 08:59 Last Admin: 12/26/24 08:56 Dose: 60 mg Vitamin D (Cholecalciferol 25 Mcg (1000 Units) Tab) 25 mcg PO Q48H [facility] Stop: 01/21/25 08:59 Last Admin: 12/26/24 08:55 Dose: 25 mcg
--- NOTE | 2024-12-27 16:27 | Hospitalist Progress Note ---
Date of Service December 27, 2024 Assessment & Plan (1) Closed left hip fracture: Plan: 69-year-old female with past medical history significant for hypertension, diabetes, GERD, hyperlipidemia comes because of fall and found to have left hip fracture. Patient states she tripped over a computer cord and fell on the left side. Did not hit her head. No loss of consciousness. Denies any chest pain. No dizziness. No shortness of breath. Having a lot of pain in the left hip region. Having lot of spasms. Denies any fevers. No headache. No runny nose or sore throat. No cough. Eating and drinking okay. No nausea. No abdominal pain. Normal bowel and bladder movements. Prior to falling she was ambulating fine without any support. Closed left hip fracture Status post mechanical fall Labs are okay. EKG okay. Chest x-ray okay. Patient should be at acceptable risk to proceed with surgery N.p.o., IV fluids, IV pain meds as needed Ortho consult appreciate input and recommendation Status post left long trochanteric nail placement on 12/22/2024 Minimal pain following surgery and remains stable medically and hemodynamically Magnesium level is low at 1.4 and will be supplemented Pain is controlled reasonably and will add oxycodone 5 mg Q6 hourly as needed for better control of pain Will give a small dose of baclofen for muscle spasm Continue PT and OT May need placement Remains medically stable and continue physical therapy Likely discharge on Thursday Much better with decreasing pain and no other significant symptoms Remains stable with minimal pain with ambulation Has had PT and recommended rehab and case management specialist has been working on it Pain is worse today that she will be transferred to [facility] this afternoon Will continue with current pain medications and continue PT evaluation Likely discharge tomorrow Hypertension On lisinopril Blood pressure is controlled Remains tachycardic at around 114/min likely secondary to dehydration Will advised to drink more fluid Remains tachycardic likely secondary to dehydration and pain induced Does not have any infection- blood pressure remains stable Blood pressure is well-controlled and the heart rate is coming down too Diabetes Hold metformin Will follow HbA1c levels-hemoglobin A1c is elevated at 8.3 Sliding scale Blood sugar remains stable and on the upper side on sliding scale Hyperlipidemia On statin GERD On omeprazole Osteoporosis On raloxifene DVT prophylaxis SCDs on right leg Further anticoagulation as per orthopedics Disposition Medical floor Full code. Admission and Anticipated Discharge Date Admission Date: December 21, 2024 Subjective 12/22/2024 The patient was seen and examined in medical floor She is status post fall with left hip fracture and s/p repair with left long trochanteric nail on 12/22/2024 Minimal pain in the left hip without radiculopathy Generally weak and denies any other significant symptoms 12/23/2024 The patient was seen and examined in medical floor She is out of bed on a chair with minimal pain Has been having muscle spasm and requested to have some muscle relaxant Denies any other symptoms 12/24/2024 Patient was seen and examined in medical floor She has been much better without any significant symptoms Pain is reasonably controlled and she has been getting physical therapy LUNGS: Breath sounds equal, no wheezes, rales, or rhonchi heard. No tachypnea or dyspnea. 12/25/2024 The patient was seen and examined in medical floor She has been much better today Decreasing pain in the hip and has been getting physical therapy Awaiting further PT evaluation and recommendation 12/26/2024 The patient was seen and examined in medical floor She has been stable and the pain is controlled with current medications Has had PT evaluation and recommended rehab 12/27/2024 The patient was seen and examined in the medical floor She has been complaining of more pain today Denies any other significant symptoms She will be transferred to [facility] tomorrow Review of Systems Review of Systems: All systems reviewed and are unremarkable except as noted below Physical Exam Physical Exam: Lying in bed with minimal distress due to pain and effect of medications for anesthesia Constitutional: + ill appearing and average body habitus Eyes: PERRL, conjunctivae normal, anicteric sclerae ENMT: external ear and nose normal, oropharynx normal Neck: trachea midline, no thyromegaly Respiratory: no respiratory distress Auscultation: lungs clear to auscultation bilaterally Cardiovascular: Rate/Rhythm: regular rate, regular rhythm and + tachycardic Heart Sounds: normal S1 and normal S2; no murmur Extremities: no edema Gastrointestinal (Abdomen): Inspection/Auscultation: normal bowel sounds; abdomen not distended Percussion/Palpation: abdomen soft; abdomen nontender Neurologic: normal touch/pain/proprioception and moves all extremities; no focal motor deficits Lymphatic: no cervical or axillary lymphadenopathy Results & Data Results & Data Vital Signs (Past 12 Hours) Vital Signs Temp Pulse Resp BP Pulse Ox O2 Del Method O2 Flow Rate 12/27/24 15:08 36.7 C 98 H 20 118/71 92 Room Air 12/27/24 14:04 Nasal Cannula 2 12/27/24 07:38 94 Nasal Cannula 1 12/27/24 07:34 36.4 C L 96 H 15 119/72 90 Room Air Medications Administered Current Inpatient Medications Atorvastatin Calcium (Atorvastatin 10 Mg Tab) 10 mg PO HS [facility] Stop: 01/20/25 22:52 Last Admin: 12/26/24 20:04 Dose: 10 mg Baclofen (Baclofen 10 Mg Tab) 5 mg PO TID [facility] Stop: 01/22/25 20:59 Last Admin: 12/27/24 13:05 Dose: 5 mg Dextrose (Dextrose 50% 50 Ml Syringe) 25 - 50 ml IV UD PRN; Protocol PRN Reason: Hypoglycemia Protocol Stop: 01/20/25 22:52 Glucagon (Glucagon For Inj 1 Mg Vial) 1 mg SQ UD PRN; Protocol PRN Reason: Hypoglycemia Protocol Stop: 01/20/25 22:52 Glucose (Glucose 40% Gel 15 Gm Tube) 15 - 30 gm PO UD PRN; Protocol PRN Reason: Hypoglycemia Protocol Stop: 01/20/25 22:52 Glucose (Glucose 10 Tab/Tube) 4 - 8 tab PO UD PRN; Protocol PRN Reason: Hypoglycemia Protocol Stop: 01/20/25 22:52 Hydromorphone HCl (Hydromorphone Inj 0.5 Mg/0.5 Ml Syr) 0.25 mg IV Q4H PRN PRN Reason: Moderate Pain (Scale 4, 5, 6) Stop: 01/04/25 22:52 Last Admin: 12/21/24 23:38 Dose: 0.25 mg Hydromorphone HCl (Hydromorphone Inj 0.5 Mg/0.5 Ml Syr) 0.5 mg IV Q4H PRN PRN Reason: Severe Pain (Scale 7, 8, 9,10) Stop: 01/04/25 22:52 Last Admin: 12/27/24 10:39 Dose: 0.5 mg Insulin Aspart (Insulin Aspart Per Unit Charge) 0 units SC ACHS [facility] Stop: 01/21/25 20:59 Last Admin: 12/27/24 12:35 Dose: 3 units Lisinopril (Lisinopril 20 Mg Tab) 20 mg PO QPM [facility] Stop: 01/20/25 22:52 Last Admin: 12/26/24 20:04 Dose: 20 mg Miscellaneous (Carbohydrates For Hypoglycemia ) 15 - 30 gm PO UD PRN PRN Reason: Hypoglycemia Protocol Stop: 01/20/25 22:52 Ondansetron HCl (Ondansetron Inj 2 Mg/Ml 2 Ml Vial) 4 mg IV Q6H PRN PRN Reason: Nausea And Vomiting Stop: 01/20/25 23:08 Last Admin: 12/21/24 23:38 Dose: 4 mg Oxycodone HCl (Oxycodone Hcl Ir 5 Mg Tab (Immediate Release)) 5 mg PO Q6H PRN PRN Reason: Pain Stop: 01/06/25 10:27 Last Admin: 12/27/24 08:06 Dose: 5 mg Pantoprazole Sodium (Pantoprazole 40 Mg Tab) 40 mg PO QAM [facility] Stop: 01/21/25 08:59 Last Admin: 12/27/24 08:07 Dose: 40 mg Polyethylene Glycol (Polyethylene (Miralax) 17 Gm Pack) 17 gm PO DAILY PRN PRN Reason: Constipation Stop: 01/20/25 22:52 Raloxifene HCl (Raloxifene Hcl 60 Mg Tab) 60 mg PO QAM [facility] Stop: 01/21/25 08:59 Last Admin: 12/27/24 08:08 Dose: 60 mg Vitamin D (Cholecalciferol 25 Mcg (1000 Units) Tab) 25 mcg PO Q48H [facility] Stop: 01/21/25 08:59 Last Admin: 12/26/24 08:55 Dose: 25 mcg
[2024-12-28 07:21] VITALS: RESP 16; TEMP 98
--- NOTE | 2024-12-28 11:53 | Ultrasound Report ---
LEFT LOWER EXTREMITY VENOUS DOPPLER HISTORY: leg edema, r/o dvt COMPARISON STUDY: None FINDINGS: No evidence of DVT seen at the left lower extremity. IMPRESSION: No DVT seen. . ACT 112: Negative or not required by law. Electronically signed by: Rubin Horner M.D. 12/28/2024 11:52 AM
[2024-12-28 12:49] VITALS: O2SAT 94
[2024-12-28 13:26] VITALS: BP 133/76; PULSE 99
--- NOTE | 2024-12-28 13:27 | Discharge Summary ---
Discharge Summary Date of Service December 28, 2024 Principal Dx & Hospital Course #1 = Principal Diagnosis (1) Closed left hip fracture: per previous hospitalist notes with addendum: 69-year-old female with past medical history significant for hypertension, diabetes, GERD, hyperlipidemia comes because of fall and found to have left hip fracture. Patient states she tripped over a computer cord and fell on the left side. Did not hit her head. No loss of consciousness. Denies any chest pain. No dizziness. No shortness of breath. Having a lot of pain in the left hip region. Having lot of spasms. Denies any fevers. No headache. No runny nose or sore throat. No cough. Eating and drinking okay. No nausea. No abdominal pain. Normal bowel and bladder movements. Prior to falling she was ambulating fine without any support. Closed left hip fracture Status post mechanical fall Status post left long trochanteric nail placement on 12/22/2024 Pain is controlled reasonably and will add oxycodone 5 mg Q6 hourly as needed for better control of pain Will give a small dose of baclofen for muscle spasm PRN Continue PT and OT per Ortho: * Daily treatment: Physical Therapy/ Occupational Therapy per protocol * Weight bearing status: WBAT * Continue to monitor for ABLA * Pain control * DVT prophylaxis, ASA x6 weeks * Office/hospital f/u 2 weeks for progress check and staple/suture removal Hypertension On lisinopril Blood pressure is controlled Remains tachycardic at around 114/min likely secondary to dehydration Will advise to drink more fluid Remains tachycardic likely secondary to dehydration and pain induced Does not have any infection- blood pressure remains stable Blood pressure is well-controlled and the heart rate is coming down too Diabetes hemoglobin A1c is elevated at 8.3 continue Metformin monitor BSGs Hyperlipidemia On statin GERD On omeprazole Osteoporosis On raloxifene DVT prophylaxis SCDs on right leg ASA 81mg po daily x 6 weeks per Ortho Disposition transfer to [facility] Follow up with Ortho in 1 week Follow up with PCP in1 week Full code. Notes For Next Care Provider Medication Changes From Visit PRN Oxycodone, Baclofen ASA 81mg po daily x 6 weeks Miralax daily Admission HPI Per Admitting Provider 69-year-old female with past medical history significant for hypertension, diabetes, GERD, hyperlipidemia comes because of fall and found to have left hip fracture. Patient states she tripped over a computer cord and fell on the left side. Did not hit her head. No loss of consciousness. Denies any chest pain. No dizziness. No shortness of breath. Having a lot of pain in the left hip region. Having lot of spasms. Denies any fevers. No headache. No runny nose or sore throat. No cough. Eating and drinking okay. No nausea. No abdominal pain. Normal bowel and bladder movements. Prior to falling she was ambulating fine without any support. Past medical history. As mentioned above Past surgical history. Right hip surgery. Left ankle surgery. Social history. Quit smoking 20 years ago. Prior to that smoked for 20 years. Alcohol drinks 1 to 2 glass of wine daily. Family history. Father had heart disease. Mother had stroke. Sister had breast cancer. Admission Exam Per Admitting Provider General- Not in distress Head- atraumatic Eyes- PERRL. ENT- oropharynx clear Neck- supple, no JVD. Lungs- clear to auscultation no wheezing or crackles Heart- regular rate and rhythm; no murmur, no gallop. Abdomen- normal bowel sounds, soft, nontender, no distension Extremities- Left lower extremity shortened and externally rotates. sensations intact Neuro- alert, oriented PERRL, no facial palsy; no dysarthria; Discharge Exam General- oriented x 3, not in distress, speaks in sentences with no effort or accessory muscle use Eyes- anicteric Neck- no JVD Lungs- clear breath sounds bilaterally, no rales/wheezes Heart- normal rate, regular rhythm; no murmurs Abdomen- normal bowel sounds, nondistended, soft, nontender Extremities- no pretibial edema, no calf tenderness Neuro- alert, oriented x 3; no gross focal neurologic deficits Skin- warm & dry Updated Medication List Medication Instructions Recorded Confirmed Type atorvastatin 10 mg tablet 10 mg PO HS 12/21/24 12/21/24 History cholecalciferol (vitamin D3) 25 25 mcg PO Q48H 12/21/24 12/21/24 History mcg (1,000 unit) capsule (Vitamin D3) lisinopril 20 mg tablet 20 mg PO QPM 12/21/24 12/21/24 History metformin 500 mg tablet,extended 500 mg PO BIDWMEAL 12/21/24 12/21/24 History release 24 hr omeprazole 20 mg capsule,delayed 20 mg PO QAM 12/21/24 12/21/24 History release raloxifene 60 mg tablet 60 mg PO QAM 12/21/24 12/21/24 History aspirin 81 mg tablet,delayed 81 mg PO DAILY #42 tabs 12/28/24 Rx release (Ecotrin Low Strength) baclofen 10 mg tablet 5 mg (1/2 x 10 mg) PO TID PRN 12/28/24 Rx MUSCLE SPASM #30 tabs oxycodone 5 mg tablet 5 mg PO Q6H PRN SEVERE PAIN #20 12/28/24 Rx tabs polyethylene glycol 3350 17 gram 17 g PO DAILY 30 days #30 ea 12/28/24 Rx oral powder packet (Miralax) Hospital Stay Data Consultations 12/21/24 19:47 Consult Orthopedic Surgery Routine 12/21/24 19:48 ED Decision to Admit Stat Procedures Performed Operation Date: 12/22/24 07:00 Actual Procedures p Left Long Troch Nail(Left) - He Montiel MD Diagnostic Imagining Performed Laboratory Results WBC 6.60 K/ul (4.8-10.8) 12/26/24 06:37 RBC 2.91 M/uL (4.20-5.40) L 12/26/24 06:37 Hgb 9.9 g/dl (12.0-16.0) L 12/26/24 06:37 Hct 28.8 % (37.0-47.0) L 12/26/24 06:37 MCV 99.0 fL (80.0-100.0) 12/26/24 06:37 MCH 34.0 pg (25.0-34.0) 12/26/24 06:37 MCHC 34.4 g/dL (32.0-36.0) 12/26/24 06:37 RDW Std Deviation 55.8 fL (36.4-46.3) H 12/26/24 06:37 RDW Coeff of Leatha 15.6 % (11.5-14.5) H 12/26/24 06:37 Plt Count 208 K/uL (130-400) 12/26/24 06:37 MPV 11.6 fL (9.4-12.4) 12/26/24 06:37 Immature Gran % (Auto) 0.6 % 12/26/24 06:37 Neut % (Auto) 59.4 % 12/26/24 06:37 Lymph % (Auto) 24.8 % 12/26/24 06:37 [place] % (Auto) 11.1 % 12/26/24 06:37 Eos % (Auto) 3.5 % 12/26/24 06:37 Baso % (Auto) 0.6 % 12/26/24 06:37 Neut # (Auto) 3.92 K/uL (1.40-6.50) 12/26/24 06:37 Lymph # (Auto) 1.64 K/uL (1.20-3.40) 12/26/24 06:37 [place] # (Auto) 0.73 K/uL (0.11-0.59) H 12/26/24 06:37 Eos # (Auto) 0.23 K/uL (0.00-0.50) 12/26/24 06:37 Baso # (Auto) 0.04 K/uL (0.00-0.20) 12/26/24 06:37 Immature Gran # (Auto) 0.04 K/uL (0.01-0.20) 12/26/24 06:37 PT 11.9 Seconds (9.0-12.0) 12/21/24 18:30 INR 1.1 (0.9-1.1) 12/21/24 18:30 APTT 23 Seconds (21-31) 12/21/24 18:30 PTT Ratio 0.9 12/21/24 18:30 Sodium 142 mmol/L (136-145) 12/26/24 06:37 Potassium 3.7 mmol/L (3.5-5.1) 12/26/24 06:37 Chloride 108 mmol/L (98-107) H 12/26/24 06:37 Carbon Dioxide 25 mmol/L (21-32) 12/26/24 06:37 Anion Gap 9 (3-11) 12/26/24 06:37 BUN 21 mg/dl (6-23) 12/26/24 06:37 Creatinine 0.74 mg/dl (0.6-1.2) 12/26/24 06:37 Est Cr Clr Drug Dosing 60.4 ml/min 12/26/24 06:37 eGFR 86.98 12/26/24 06:37 BUN/Creatinine Ratio 28.4 (10-20) H 12/26/24 06:37 Glucose 194 mg/dl (70-99(Fasting)) H 12/26/24 06:37 POC Glucose 160 mg/dl (70-99) H 12/28/24 11:53 Estimat Average Glucose 192 mg/dl 12/22/24 07:05 Hemoglobin A1c 8.3 % (4.5-5.6) H 12/22/24 07:05 Calcium 8.8 mg/dl (8.6-10.3) 12/26/24 06:37 Magnesium 1.5 mg/dl (1.7-2.4) L 12/26/24 06:37 Total Bilirubin 0.4 mg/dl (0.2-1.0) 12/21/24 18:30 AST 65 U/L (13-39) H 12/21/24 18:30 ALT 48 U/L (7-52) 12/21/24 18:30 Alkaline Phosphatase 60 U/L (34-104) 12/21/24 18:30 Troponin I High Sens 2.9 pg/ml (0-14) 12/21/24 18:30 Total Protein 6.8 gm/dl (6.0-8.3) 12/21/24 18:30 Albumin 4.1 gm/dl (3.4-5.0) 12/21/24 18:30 Globulin 2.7 gm/dl (2.5-4.0) 12/21/24 18:30 Albumin/Globulin Ratio 1.5 (0.9-2) 12/21/24 18:30 Urine Color Yellow 12/22/24 15:41 Urine Appearance Cloudy (Clear) A 12/22/24 15:41 Urine pH 5.5 (4.5-7.5) 12/22/24 15:41 Ur Specific [place] 1.025 (1.000-1.030) 12/22/24 15:41 Urine Protein Negative (Negative) 12/22/24 15:41 Urine Glucose (UA) 3+ (Negative) H 12/22/24 15:41 Urine Ketones 1+ (Negative) H 12/22/24 15:41 Urine Blood Negative (Negative) 12/22/24 15:41 Urine Nitrite Negative (Negative) 12/22/24 15:41 Urine Bilirubin Negative (Negative) 12/22/24 15:41 Urine Urobilinogen Negative (Negative) 12/22/24 15:41 Ur Leukocyte Esterase Negative (Negative) 12/22/24 15:41 Urine WBC (Auto) 0-5 /hpf (0-5) 12/22/24 15:41 Urine RBC (Auto) 0-2 /hpf (0-2) 12/22/24 15:41 U Hyaline Cast (Auto) 11-20 /lpf (0-2) H 12/22/24 15:41 U Epithel Cells (Auto) 0-2 /hpf (0-2) 12/22/24 15:41 Urine Bacteria (Auto) None Seen (None Seen) 12/22/24 15:41 Hyaline Casts Present /lpf (None Presnt) A 12/22/24 15:41 Urine Comment 12/22/24 15:41 Impressions Chest X-Ray 12/21/24 18:34 EXAM: XR chest 1V portable CLINICAL HISTORY: Pre op. TECHNIQUE: An X-ray image of the chest is obtained in AP projection. COMPARISON: No prior studies are available for comparison. FINDINGS: Pulmonary Parenchyma: Lungs are clear bilaterally. No evidence of consolidation, collapse, or focal opacities. No pulmonary nodules are identified. No evidence of pleural effusion or pleural thickening. Heart and Mediastinum: Heart size and shape are normal. No mediastinal widening or masses. No hilar or mediastinal lymphadenopathy. Bony Thorax: Bony thorax appears intact without fractures or deformities. Soft Tissues: Soft tissues overlying the chest wall are unremarkable. IMPRESSION: 1. No acute cardiopulmonary abnormalities are identified. Electronically signed by Jacobo Rich 12-21-2024 9:56 PM Hip/Pelvis X-Ray 12/21/24 18:34 EXAM: XR hip LT 2V w pelvis CLINICAL HISTORY: L hip pain s/p fall. TECHNIQUE: X-ray images of the left hip joints and pelvis in AP and and hip lateral projection. COMPARISON: No prior studies available for comparison. FINDINGS: Bones: A comminuted fracture is seen involving the left femoral intertrochanteric and subtrochanteric regions with mild angulation. Osteopenic texture of examined bones. Joints: Osteoarthritic changes of the hip joint with narrowed joint space. no femoral head fracture or subluxation. Sacroiliac joints appear normal and unremarkable. No evidence of sacroiliitis or significant degenerative changes. Symphysis pubis is normal and intact. No evidence of separation or widening. Soft tissue: Mild soft tissue swelling. IMPRESSION: 1. Comminuted fracture involving the left femoral intertrochanteric and subtrochanteric regions with mild angulation. 2. Osteoarthritic changes of the hip joint with narrowed joint space. 3. No femoral head fracture or subluxation. Disclaimer: A subtle bone abnormality or fracture may not be readily apparent on X-rays, thus clinical correlation and further imaging including follow-up CT, MRI, or follow-up X-rays are advised as needed. Electronically signed by Jacobo Rich 12-21-2024 10:10 PM Femur X-Ray 12/22/24 06:41 XR femur LT 2V routine CLINICAL HISTORY: IT fx COMPARISON: 12/21/2024 FINDINGS: Acute mildly displaced intertrochanteric fracture proximal left femur has stable alignment with mild proximal migration of the distal fragment. No other fracture or dislocation seen at the left femur. IMPRESSION: Stable alignment at the proximal femur fracture. ACT 112: Negative or not required by law. Electronically signed by: Rubin Horner M.D. 12/22/2024 9:21 AM Hip X-Ray 12/22/24 11:55 XR hip LT min 2V CLINICAL HISTORY: Post-Operative implant position COMPARISON: 12/22/2024 FINDINGS: Interval left femoral gamma nail shows no hardware complication. There is improved alignment at the proximal femur fracture. There is expected soft tissue gas. Skin jesika are present. IMPRESSION: Improved alignment. ACT 112: Negative or not required by law. Electronically signed by: Rubin Horner M.D. 12/22/2024 12:23 PM Venous Doppler Study 12/28/24 10:47 LEFT LOWER EXTREMITY VENOUS DOPPLER HISTORY: leg edema, r/o dvt COMPARISON STUDY: None FINDINGS: No evidence of DVT seen at the left lower extremity. IMPRESSION: No DVT seen. . ACT 112: Negative or not required by law. Electronically signed by: Rubin Horner M.D. 12/28/2024 11:52 AM 12/22/24 FL femur LT 2V Routine 12/28/24 10:47 US venous doppler LE LT Stat Pending Results Patient Have Any Pending Studies at Discharge: No Discharge Instructions Given to Patient (Per Discharging Provider) PLEASE REFER TO ACCOMPANYING HOSPITAL DISCHARGE SUMMARY FOR FURTHER DETAILS. ORTHOPEDIC SERVICE RECOMMENDATIONS: * Weight bearing status: WBAT * Continue to monitor for ABLA * Pain control * DVT prophylaxis, ASA x6 weeks * Office/hospital f/u 2 weeks for progress check and staple/suture removal Total Time Total Time Spent Total Time Spent (In Minutes): 55 minutes
== END 2024-12-28 14:47 | DRG 482 ==
LOC: ED 18:24 → 3W 20:31 → SUATTDRO 20:31 → 3W 22:33